=== PATIENT | male | born 1960 | race Caucasian/White ===

== ENCOUNTER 2017-08-19 07:46 | Outpatient (CLI) | payer MEDICARE ==
[~2017-08-19] VITALS: Ht 162.6 cm; Wt 70.0 kg
--- NOTE | ~2017-08-19 | HEMODYNAMI ---
PATIENT:SANDEEP GAGNON MEDICAL RECORD: [id number] : 62 LOCATION:[facility] ADMISSION DATE: 08/19/17 Generatedon:08/19/201710:48 Patient name: SANDEEP GAGNON Patient #: [id number] SSN: DO B: 1960 Date of study: 08/19/2017 Page: Of Hemodynamic Procedure Report Patient Data Patient Demographics Procedure consent was obtained First Name: SANDEEP Gender: Male Last Name: KALIN : 1960 Middle Initial: THANIA Age: 56 year(s) Patient #: [id number] Race: Additional ID: [id number] Contact details Address: [address] [place] [address] State: [place] City: [place] Zip code: [address] Past Medical History Allergies: No known allergies Admission Admission Data Admission Date: 08/19/2017 Admission Time: 7:46 Procedure Procedure Types Cath Procedure Diagnostic Procedure LHC LHC w/Coronaries w/Grafts Miscellaneous Procedures Moderate Sedation up to 30 minutes Procedure Description Procedure Date Procedure Date: 08/19/2017 Procedure Start Time: 10:24 Procedure End Time: 10:45 Procedure Staff Name Function Monae Dean RT Monitor Moshe Malhotra MD Performing Physician Art Betancourt RT Scrub Noah Townsend RN Nurse Procedure Data Cath Procedure Fluoroscopy Diagnostic fluoroscopy Total fluoroscopy Time: 4.7 time: 4.7 min min Diagnostic fluoroscopy Total fluoroscopy dose: dose: 257.69 mGy 257.69 mGy Contrast Material Contrast Material Type Amount (ml) Isovue 300 93 Entry Location Entry Primary Successful Side Size Upsize Upsize Entry Closure Succes sful Closure Location (Fr) 1 (Fr) 2 (Fr) Remarks Device Remarks Femoral Right 5 Fr 6 Fr Exoseal artery Short Estimated blood loss: 5 ml Diagnostic catheters Device Type Used For End Catheter Placement MULTIPACK Pigtail 5 Fr LV Angiography catheter MULTIPACK JL 4.0 5Fr Left Coronary catheter Angiography DIAGNOSTIC JL 3.5 5Fr Left Coronary catheter ([id number]) Angiography MULTIPACK 3DRC 5Fr Internal mammary catheter arteriography MULTIPACK 3DRC 5Fr Right Coronary catheter Angiography DIAGNOSTIC AR 2 MOD 5 Fr SVG Angiography catheter ([id number]) MULTIPACK 3DRC 5Fr SVG Angiography catheter Procedure Complications No complications Procedure Medications Medication Administration Route Dosage 0.9% NaCl I.V. 100 ml/hr Oxygen NC 2 l/min Heparin Flush Bag added to field 2 bags (1000units/500ml NS) Lidocaine 2% added to field 20 Versed 1 mg Fentanyl I.V. 50 mcg Versed 1 mg Fentanyl I.V. 50 mcg Fentanyl I.V. 50 mcg Fentanyl I.V. 50 mcg Hemodynamics Rest Heart Rate: 65 (bpm) Snapshots Pre Cath Intra NCS Post Cath Vital Signs Time Heart Resp SPO2 etCO2 NIBP (mmHg) Rhythm Pain Sedation Rate (ipm) (%) (mmHg) Status Level (bpm) 10:10:06 60 19 97 33.1 145/94(111) NSR 0 (11) 10(A) , No pain 10:14:24 64 18 96 35.4 148/85(111) NSR 0 (11) 10(A) , No pain 10:18:44 65 15 95 36.1 141/86(113) NSR 0 (11) 10(A) , No pain 10:22:56 67 16 94 35.4 138/84(118) NSR 0 (11) 10(A) , No pain 10:28:12 71 16 96 36.9 148/81(91) NSR 0 (11) 10(A) , No pain 10:32:26 71 14 94 40.6 136/89(123) NSR 0 (11) 10(A) , No pain 10:36:42 73 16 93 29.3 145/97(116) NSR 0 (11) 9(A) , No pain 10:40:56 78 17 93 41.4 144/95(135) NSR 0 (11) 9(A) , No pain 10:46:05 74 19 92 42.2 155/95(117) NSR 0 (11) 9(A) , No pain Medications Time Medication Route Dose Verified Delivered Reason Notes Effe ctiveness by by 10:11:49 0.9% NaCl I.V. 100 Noah Per ml/hr Kristian physician RN 10:12:01 Oxygen NC 2 Noah Noah Per l/min Kristian Townsend physician RN RN 10:12:19 Heparin Flush added 2 Noah Noah used for Bag to bags Lorigan Lorigan procedure (1000units/500ml field RN RN NS) 10:12:33 Lidocaine 2% added 20ml Noah Noah for local to vial Lorigan Lorigan anesthetic field RN RN 10:27:29 Versed 1 mg Noah Noah for Lorigan Lorigan sedation RN RN 10:27:38 Fentanyl I.V. 50 Noah Noah for mcg Lorigan Lorigan sedation RN RN 10:27:53 Versed 1 mg Noah Noah for Lorigan Lorigan sedation RN RN 10:28:44 Fentanyl I.V. 50 Noah Noah for mcg Lorigan Lorigan sedation RN RN 10:34:38 Fentanyl I.V. 50 Noah Noah for mcg Lorigan Lorigan sedation RN RN 10:40:49 Fentanyl I.V. 50 Noah Noah for mcg Lorigan Lorigan sedation RN satellite dish repairer Log Time Note 9:51:39 Time tracking: Regular hours 9:51:42 Plan of Care:Hemodynamics will remain stable., Cardiac rhythm will remain stable., Comfort level will be maintained., Respiratory function will remain adequate., Patient/ family verbilizes understanding of procedure., Procedure tolerated without complication., Recovers from procedure without complications.. 9:53:05 Art MARTÍNEZ(R) sent for patient. Start room use. 10:01:36 Patient received from Pre/Post Procedure Room to CCL 3 Alert and oriented. Tansferred to table in Supine position. 10:01:38 Correct patient and procedure confirmed by team. 10:01:38 Warm blankets applied, and ximena hugger turned on for patient comfort. 10:01:40 ECG and BP/O2 sat monitors applied to patient. 10:01:40 Signed procedure consent form obtained from patient. 10:09:00 Vital chart was started 10:09:03 Rhythm: sinus rhythm 10:09:05 Full Disclosure recording started 10:09:13 H&P Date Dictated: 08/04/2017 Within 30 days and on chart., H&P Addendum completed by physician on day of procedure. (MUST COMPLETE FOR ALL OUTPATIENTS). 10:09:14 Pre-procedure instructions explained to patient. 10:09:15 Pre-op teaching completed and patient verbalized understanding. 10:09:16 Family in waiting room. 10:09:18 Patient NPO since Midnight. 10:09:23 Patient allergic to No known allergies 10:09:25 Is the patient allergic to Iodine/contrast media? No. 10:09:28 Is patient on blood thinner?Yes 10:09:30 ACC The patient was administered the following blood thiners within the last 24 hours: ACCAspirin, ACCPlavix 10:09:32 Patient diabetic? No. 10:09:35 Snore? Yes 10:09:35 Previous problem with sedation/anesthesia? No ? 10:09:36 Sleep apnea? No 10:09:37 Deviated septum? No 10:09:38 Sticks out tongue? Yes 10:09:38 Opens mouth fully? Yes 10:09:39 Airway obstruction? Yes COPD 10:09:41 Dentures? Yes OUT 10:09:43 Pre procedure: right dorsailis pedis pulse 2+ Normal; easily identifiable; not easily obliterated 10:09:45 Patient pain scale 0/10 ?. 10:09:50 IV patent on arrival in left hand with 0.9% NaCl at O. 10:09:54 Lab results completed and on chart. 10:09:56 Right groin area was prepped with chlora-prep and draped in sterile fashion 10:09:57 Sharps counted by scrub and verified by R.N. 10:09:57 Alarms reviewed by R. N. 10:10:00 Use device set Femoral Dx 10:10:01 Medline Cath Pack ([id number]) opened to sterile field. 10:10:01 Bag Decanter () opened to sterile field. 10:10:01 ACIST Syringe (56503) opened to sterile field. 10:10:02 DIAGNOSTIC WIRE .035 260cm J wire (747067) opened to sterile field. 10:10:02 SHEATH 5FR [place] ([id number]) opened to sterile field. 10:10:06 ACIST Manifold (23884) opened to sterile field. 10:10:06 ACIST Hand Control (17948) opened to sterile field. 10:10:07 Tegaderm 4 x 4 (1626W) opened to sterile field. 10:10:07 DIAGNOSTIC Multipack 5Fr catheter set ([id number]) opened to sterile field. 10:10:08 PERCUTANEOUS ENTRY 19GA needle opened to sterile field. 10:11:49 0.9% NaCl 100 ml/hr I.V. was administered by Noah Townsend RN; Per physician; 10:12:01 Oxygen 2 l/min NC was administered by Noah Townsend RN; Per physician; 10:12:19 Heparin Flush Bag (1000units/500ml NS) 2 bags added to field was administered by Noah Townsend RN; used for procedure; 10:12:33 Lidocaine 2% 20ml vial added to field was administered by Noah Townsend RN; for local anesthetic; 10:15:50 Baseline sample Acquired. 10:18:32 Zero performed for pressure channel P1 10:18:57 Physician paged 10:23:33 Final Timeout: patient, procedure, and site verified with staff and physician. All members of the team are in agreement. 10:23:35 Right groin site verified by team. 10:23:38 Physical assessment completed. ASA score P 2 - A patient with mild systemic disease as per Moshe Malhotra MD. 10:23:41 Sedation plan: IV Moderate Sedation Medication:Versed, Fentanyl 10:24:49 Procedure started. 10:24:52 Local anesthetic to right femoral artery with Lidocaine 2% by Moshe Malhotra MD.INITIAL ACCESS ONLY 10::29 Versed 1 mg was administered by Noah Townsend RN; for sedation; 10::38 Fentanyl 50 mcg I.V. was administered by Noah Townsend RN; for sedation; 10::44 A 5 Fr sheath was inserted into the Right Femoral artery 10::53 Versed 1 mg was administered by Noah Townsend RN; for sedation; 10::14 A MULTIPACK Pigtail 5 Fr catheter was advanced over the wire and used for LV Angiography. 10::44 Fentanyl 50 mcg I.V. was administered by Noah Townsend RN; for sedation; 10:29:10 LV gram done using ANSARI 10::14 EF : 60 % 10::16 Injector settings: Ml/sec: 10, Volume: 20, 10:29:17 Catheter removed. 10::25 A MULTIPACK JL 4.0 5Fr catheter was advanced over the wire and used for Left Coronary Angiography.removed, unable to cannulate 10:31:59 Catheter removed. 10:32:17 A DIAGNOSTIC JL 3.5 5Fr catheter ([id number]) was advanced over the wire and used for Left Coronary Angiography.removed, unable to cannulate 10:33:29 Sheath upsized to a 6 Fr Short. 10:33:44 GUIDE 6FR EBU 3.5 catheter ([id number]) opened to sterile field. 10:34:38 Fentanyl 50 mcg I.V. was administered by Noah Townsend RN; for sedation; 10:35:59 Guide catheter removed. 10:36:12 A MULTIPACK 3DRC 5Fr catheter was advanced over the wire and used for Internal mammary arteriography.to LAD 10:37:26 A MULTIPACK 3DRC 5Fr catheter was advanced over the wire and used for Right Coronary Angiography. 10:37:37 Catheter removed. 10:38:26 A DIAGNOSTIC AR 2 MOD 5 Fr catheter ([id number]) was advanced over the wire and used for SVG Angiography.to RCA 10:39:53 A MULTIPACK 3DRC 5Fr catheter was advanced over the wire and used for SVG Angiography.to CIRC 10:39:56 Catheter removed. 10:40:12 Sheath removed intact; hemostasis achieved with Exoseal to the Right Femoral artery. 10:40:14 Procedure ended.(Physican Out) 10:40:38 Fluoroscopy time 04.70 minutes. 10:40:45 Fluoroscopy dose: 257.69 mGy 10:40:45 Flurop Dose total: 257.69 10:40:49 Fentanyl 50 mcg I.V. was administered by Noah Townsend RN; for sedation; 10:41:07 Contrast amount:Isovue 300 93ml. 10:41:09 Sharps counted by scrub and verified by R.N. 10:41:10 Insertion/operative site no bleeding no hematoma. 10:41:12 Post-op/insertion site Right Femoral artery dressed using a 4 x 4 and Tegaderm. 10:41:15 Post right femoral artery:stable, clean and dry 10:41:16 Post Procedure Pulses reassessed and unchanged 10:41:18 Post-procedure physical assessment completed. ASA score P 2 - A patient with mild systemic disease as per Moshe Malhotra MD. 10:41:22 Post procedure rhythm: unchanged. 10:41:25 Estimated blood loss: 5 ml 10:41:26 Patient needs reinforcement of post procedure teaching. 10:41:26 Post procedure instruction explained to patient.Patient verbalizes understanding. 10:41:37 Procedure type changed to Cath procedure, Diagnostic procedure, LHC, LHC w/Coronaries w/Grafts, Miscellaneous Procedures, Moderate Sedation up to 30 minutes 10:41:42 Procedure Complication : No complications 10:41:44 See physician's report for complete and final results. 10:41:47 EXOSEAL 5Fr (EX500) opened to sterile field. 10:42:19 Procedure and supply charges have been captured, reviewed, submitted and are correct. 10:44:59 Vital chart was stopped 10:45:14 Report given to Pre/Post Procedure Room. 10:45:17 Patient transfered to Pre/Post Procedure Room with Stretcher. 10:45:26 Full Disclosure recording stopped 10:45:26 Procedure ended. 10:45:29 End room use (Document Last) Device Usage Item Name Manufacture Quantity Catalog Hospital Part Current Minimal Lot# / Number Charge Number Stock Stock Serial# Code ACIST Acist 1 08011 511955 580735 801658 20 Syringe Medical (62207) Systems Inc Bag Decanter Microtek 1 2001S 247003 20631 107923 5 (2001S) Medical Inc. Medline Cath Cardinal 1 [id number] 073628 76733 725188 5 Pack Health ([id number]) SHEATH 5FR Terumo 1 LMX132 965584 712819 987418 40 [place] (ICV557) DIAGNOSTIC St [place] 1 287199 386418 642249 855966 30 WIRE .035 260cm J wire (509569) ACIST Hand Acist 1 45268 210617 848353 157194 5 Control Medical (37703) Systems Inc ACIST Acist 1 99442 896389 338456 453152 5 Manifold Medical (46329) Systems Inc DIAGNOSTIC Cardinal 1 [id number] 710589 23121 688718 30 Multipack Health 5Fr catheter set (WC1128) Tegaderm 4 x 3M 1 1626W 068763 269616 530947 5 4 (1626W) PERCUTANEOUS Cook Medical 1 [id number] 594705 424031 5 ENTRY 19GA needle MULTIPACK Cardinal 1 281507 5 Pigtail 5 Fr Health catheter MULTIPACK JL Cardinal 1 873208 5 4.0 5Fr Health catheter DIAGNOSTIC Cardinal 1 [id number] 846898 362939 919528 5 JL 3.5 5Fr Health catheter (634983Q) GUIDE 6FR Medtronic 1 [id number] 794971 73174 993532 3 EBU 3.5 catheter ([id number]) MULTIPACK Cardinal 1 497254 5 3DRC 5Fr Health catheter DIAGNOSTIC Cardinal 1 [id number] 379384 026658 702886 20 AR 2 MOD 5 Health Fr catheter (699371G) EXOSEAL 5Fr Cardinal 1 EX500 598123 676106 351053 10 (EX500) Health Signature Audit [place] Stage Time Signature Unsigned Intra-Procedure 08/19/2017 Monae 10:48:46 AM Counts RT(R) Signatures Monitor : Monae Signature : Counts RT Date : Time : [address] [address]
--- NOTE | ~2017-08-19 | OP ---
PATIENT NAME: SANDEEP GAGNON MEDICAL RECORD: [id number] :62 LOCATION:D.CAT ADMISSION DATE: SURGEON: RUDDY DIGGS MD DATE OF OPERATION: 08/19/2017 PROCEDURES: 1. Left heart catheterization. 2. Selective coronary angiography. 3. Vein graft angiography. 4. CUMMINGS angiography. 5. Left ventriculogram. INDICATION: Angina and coronary artery disease. PROCEDURE IN DETAIL: After informed consent was obtained and after detailed explanation of risks, benefits as well as alternative therapies, the patient elected to proceed with angiogram and heart catheterization. The right femoral area was prepped and draped in normal sterile fashion. The right femoral artery was cannulated via modified Seldinger technique with placement of 6-Colombian sheath. All catheters exchanged through this sheath. FINDINGS: 1. Left main has no significant angiographic disease. 2. Left anterior descending is totally occluded. 3. Left circumflex is totally occluded. 4. CUMMINGS to the LAD is widely patent. Distal LAD is small and diffusely diseased. 5. Vein graft to the circumflex in a skipped fashion to OM1 and OM2 is patent, previously placed stents in the vein grafts are patent. The distal vessels are small, diffusely diseased. 6. The right coronary artery is totally occluded. 7. Vein graft to the right coronary artery is widely patent. The distal right coronary artery is small and diffusely diseased. OVERALL IMPRESSION: Wide patency of all vein grafts and previously placed stents, but small diffuse disease of cowlitz vessels after the grafted segment. Continue medical management of the coronary artery disease and cardiac risk factors. TRANSINT:[id number] Voice Confirmation ID: [id number] DOCUMENT ID: [id number] RUDDY DIGGS MD at 1025 CC: [id number] DICTATION DATE: 08/19/17 1046 GRAPHIC PRODUCTION ARTIST: 08/19/17 1217 DEP CLI 08/19/17 [place] [id number] [place] [id number]
[~2017-08-19 07:46] MED LIST: ASPIRIN325 MG PO; BAYER CHEWABLE81 MG PO; CELEXA20 MG PO; FLOVENT; FLOVENT HFA 22012 GM INH; IMDUR30 MG PO; LIPITOR40 MG PO; PLAVIX75 MG PO; PRILOSEC20 MG PO; SINGULAIR10 MG PO; TOPROL XL25 MG PO; TUDORZA PRESS400 MCG IH; XANAX0.25 MG PO
[2017-08-19] MEDS ORDERED: NITROSTAT0.3 MG SL (08:34)
[2017-08-19] MEDS ORDERED: PAXIL20 MG PO (08:34)
[2017-08-19] MEDS ORDERED: LIPITOR40 MG PO (08:35)
[2017-08-19] MEDS ORDERED: PROTONIX40 MG PO (08:35)
[2017-08-19] MEDS ORDERED: ZOFRAN4 MG PO (08:35)
[2017-08-19 08:57] VITALS: BP 137/82; Ht 162.6 cm; Wt 70.0 kg
[2017-08-19 09:05] LABS: BASOPHILS 0.4 % (0-2); EOSINOPHILS 1.3 % (0-7); HEMATOCRIT 45.4 % (42.0-54.0); HEMOGLOBIN 15.5 g/dL (13.5-17.5); IMMATURE GRANULOCYTES 0.3 % (0-5); LYMPHOCYTES 25.3 % (15-50); MCH 31.2 pg (26.0-34.0); MCHC 34.1 g/dL (31.0-37.0); MCV 91.3 fL (80.0-100.0); MEAN PLATELET VOLUME 9.9 fL (7.4-10.4); NEUTROPHILS 64.7 % (40-80); PLATELET COUNT 298 10x3/uL (130-400); RBC 4.97 10x6/uL (4.20-6.10); RDW 13.3 % (11.5-14.5); WBC 10.3 10x3/uL (4.8-10.8)
[2017-08-19 09:09] LABS: CALC OSMOLALITY 273 mosm/kg (275-300); CALCIUM 9.1 mg/dL (8.5-10.1); CARBON DIOXIDE 25.4 mmol/L (21.0-32.0); CHLORIDE - SERUM 104 mmol/L (98-107); GLUCOSE 89 mg/dL (74-106); SODIUM 138 mmol/L (136-145); UREA NITROGEN 10 mg/dL (7-18); eGFR NON AFRICAN AMERICAN 82 mL/min (90-120)
[2017-08-19 09:14] LABS: POTASSIUM - SERUM 4.6 mmol/L (3.5-5.1)
== END 2017-08-19 12:46 | disposition home or self-care (01) ==
LOC: D.CATH 07:46
PROVIDERS: Internal Medicine Interventional Cardiology
DX: I25.119 Atherosclerotic heart disease of native coronary artery with unspecified angina pectoris (principal); I10 Essential (primary) hypertension; F17.200 Nicotine dependence, unspecified, uncomplicated; R94.30 Abnormal result of cardiovascular function study, unspecified; Z01.812 Encounter for preprocedural laboratory examination

== ENCOUNTER 2017-10-10 23:27 | Outpatient (CLI) | payer MEDICARE ==
[~2017-10-10] VITALS: Ht 162.6 cm; Wt 70.1 kg
--- NOTE | ~2017-10-10 | DS ---
PATIENT:SANDEEP GAGNON :62 MEDICAL RECORD: [id number] DISCHARGE SUMMARY ADMISSION DATE: 10/11/17 DISCHARGE DATE: 10/12/17 DATE OF DISCHARGE: 10/12/2017 DISCHARGE DIAGNOSES: 1. Acute coronary syndrome. 2. PTCA stent LAD this admission. 3. Coronary artery disease. 4. Hypertension. 5. Hyperlipidemia. HOSPITAL COURSE: Mr. Gagnon presents with unstable angina, acute coronary syndrome, found to have significant disease of the LAD, underwent successful PTCA stent of the LAD, was discharged home with the addition of Plavix to his medical regimen. He will follow up with [facility] in 1 month. TRANSINT:[id number] Voice Confirmation ID: [id number] DOCUMENT ID: [id number] RUDDY DIGGS MD at 1202 CC: [id number] DICTATION DATE: 10/12/17 1232 WAITER/WAITRESS CAFETERIA: 10/13/17 0806 DIS IN 10/12/[address] [address]
--- NOTE | ~2017-10-10 | CN ---
PATIENT NAME:SANDEEP GAGNON MEDICAL RECORD: [id number] : 62 LOCATION:D. D.2114 ADMIT DATE: 10/11/17 ACCOUNT: [id number] CONSULTING PHYSICIAN: RUDDY DIGGS MD REFERRING PHYSICIAN: RUDDY DIGGS MD DATE OF CONSULTATION: 10/11/2017 DIAGNOSES: 1. Non-Q-wave myocardial infarction. 2. Coronary artery disease. 3. Status post coronary bypass graft surgery. 4. Hyperlipidemia. 5. Gastroesophageal reflux disease. HISTORY OF PRESENT ILLNESS: Mr. Gagnon presents with sudden onset of chest discomfort last night and lasted multiple hours. He did rule in for a small non-Q-wave myocardial infarction with a mildly elevated troponin. He continues to have on and off chest pain. His last cardiac catheterization was in July. At that time, no intervention was undertaken. He had wide patency of the CUMMINGS to the LAD, wide patency of the vein graft to the circumflex with previous stents that were widely patent and wide patency of right coronary vein graft. REVIEW OF SYSTEMS: The patient reports easy bruising but reports no swollen glands. The patient reports no fever, no night sweats, no significant weight gain, no significant weight loss. No significant exercise tolerance. The patient reports no dry eyes, no irritation, no vision change. Patient reports no difficulty hearing and no ear pain. Patient reports no frequent nose bleeds or nose and sinus problems. Patient reports on arm pain on exertion. No shortness of breath while lying down. No history of heart murmur. Patient reports no cough, no wheezing or coughing up blood. Patient reports no abdominal pain, no vomiting. Normal appetite. No diarrhea and not vomiting blood. No nausea and no constipation. Patient reports no incontinence. No difficulty urinating. No hematuria. No increased frequency. Patient reports no muscle aches. No weakness, no arthralgias, no back pain. No swelling of the extremities. Patient reports no abnormal mole, no jaundice, no rashes. Reports no loss of consciousness. No weakness and no numbness. No seizures, dizziness, or headaches. The patient reports no depression, no sleep disturbance, feeling safe in a relationship and no alcohol abuse. Patient reports on fatigue. Reports no runny nose or sinus pressure. No itching, no hives, and no frequent sneezing. PHYSICAL EXAMINATION: GENERAL APPEARANCE: Well-nourished, well-developed, appears stated age. Level of distress, comfortable. PSYCHIATRIC: Mental status, alert, normal affect. Orientation, oriented to time, place and person. EYES: Lids and conjunctiva, noninjected. No discharge, no pallor. ENT: Lips, teeth, gums, normal dentition. Oropharynx, no cyanosis, no pallor. NECK: Carotid arteries, bilateral normal upstroke, no bruits, no thrills. JUGULAR VEINS: No jugular venous pressure or distention. CERVICAL LYMPH NODES: Nontender, nonenlarged. THYROID: Not enlarged. Nontender. No nodules. LUNGS: Respiratory effort, unlabored. CHEST: Normal curvature. No thoracic deformity. No chest wall tenderness. Percussion, resonant. Auscultation, clear. No wheezes, no rales, no rhonchi. CONSULT REPORT [id number] SANDEEP GAGNON CARDIOVASCULAR: Precordial exam, nondisplaced. No heaves or pericardial thrills. Rate and rhythm, regular. Heart sounds, normal S1, normal S2. No S3, no gallop, no rub. Systolic murmur, not heard. Diastolic murmur, not heard. EXTREMITIES: No cyanosis, no edema. Peripheral pulses, full and equal in all extremities, except as noted. No bruits appreciated. ABDOMEN: Soft, nondistended. Normal aorta. No bruit. Nontender. No masses. Liver, nontender, no hepatomegaly. Spleen, nontender, no splenomegaly. MUSCULOSKELETAL: No joint tenderness. No joint swelling. No erythema. NEUROLOGICAL: Normal gait, normal strength, normal tone. SKIN: Warm and dry. OVERALL IMPRESSION: Chest pain with non-Q-wave myocardial infarction, most likely he has recurrent hemodynamically significant coronary artery disease. We will proceed with coronary angiography. Further care depends upon the findings of the angiography. TRANSINT:[id number] Voice Confirmation ID: [id number] DOCUMENT ID: [id number] RUDDY DIGGS MD at 1202 CC: [id number] DICTATION DATE: 10/11/1738 NEWSPAPER EDITOR: 10/11/17 1109 DIS IN 10/12/17 [place] [address] [place] [address]
--- NOTE | ~2017-10-10 | OP ---
PATIENT NAME: SANDEEP GAGNON MEDICAL RECORD: [id number] :62 LOCATION:D.M2 D.2114 ADMISSION DATE:10/11/17 SURGEON: RUDDY DIGGS MD DATE OF OPERATION: 10/11/2017 PROCEDURES: 1. PTCA stent LAD through patent CUMMINGS. 2. Left heart catheterization. 3. Selective coronary angiography. 4. CUMMINGS angiography. 5. Vein graft angiography. 6. Left ventriculogram. INDICATION: Angina and coronary artery disease. PROCEDURE IN DETAIL: After informed consent was obtained and after a detailed explanation of risks, benefits as well as alternative therapies, the patient elected to proceed with angiogram and angioplasty. The right femoral area was prepped and draped in normal sterile fashion. The right femoral artery was cannulated via modified Seldinger technique with placement of 6-Turkmen sheath. All catheters exchanged through this sheath. FINDINGS: Left ventriculogram was performed in the standard 30-degree ANSARI view, reveals mild global hypokinesis. Overall ejection fraction in the 40% range. SELECTIVE CORONARY ANGIOGRAPHY: 1. Left main is basically closed. 2. The right coronary artery is closed. 3. CUMMINGS to the LAD is patent. The LAD is then closed at the site of a previously placed stent from 2013. 4. The vein graft to the circumflex is widely patent. Distal circumflex is widely patent. 5. Vein graft to the right coronary artery is patent. Distal right coronary artery is patent. PTCA STENT OF THE LAD THROUGH THE CUMMINGS GRAFT: The balloon was a 2.5 balloon. Stenting was undertaken with a 2.25 x 38 mm [place] stent. Result was 0% residual stenosis with methodist of ALICJA-3 flow. IMPRESSION: Successful percutaneous transluminal coronary angioplasty stent of the left anterior descending going from 100% initial stenosis to 0% residual stenosis with methodist of ALICJA-3 flow. TRANSINT:[id number] Voice Confirmation ID: [id number] DOCUMENT ID: [id number] RUDDY DIGGS MD at 1202 CC: [id number] DICTATION DATE: 10/11/17 1028 PROPERTY UTILIZATION MANAGER: 10/11/17 1120 DIS IN 10/12/17 [place] [id number]
--- NOTE | ~2017-10-10 | HEMODYNAMI ---
PATIENT:SANDEEP GAGNON MEDICAL RECORD: [id number] : 62 [facility]# [id number] ADMISSION DATE: 10/11/17 Generatedon:10/11/201710:26 Patient name: SANDEEP GAGNON Patient #: [id number] SSN: DO B: 1960 Date of study: 10/11/2017 Page: Of Hemodynamic Procedure Report Patient Data Patient Demographics Procedure consent was obtained First Name: SANDEEP Gender: Male Last Name: KALIN : 1960 [facility] Initial: THANIA Age: 57 year(s) Patient #: [id number] Race: Additional ID: [id number] Contact details Address: [address] [place] [address] State: [place] City: [place] Zip code: [address] Past Medical History Allergies: No known allergies Admission Admission Data Admission Date: 10/11/2017 Admission Time: 1:36 Room #: D.E07 Procedure Procedure Types Cath Procedure Diagnostic Procedure LHC LHC w/Coronaries w/Grafts Sedation Charges Moderate Sedation up to 15 minutes PCI Procedure AMI/SVG/AUTOMATIC STEEL TIE ADJUSTER PTCA or Stent SVG-BMS/SOLO Initial Procedure Description Procedure Date Procedure Date: 10/11/2017 Procedure Start Time: 10:05 Procedure End Time: 10:25 Procedure Staff Name Function Moshe Malhotra MD Performing Physician Yvrose Godoy RT Monitor Noah Townsend RN Nurse Monae Dean RT Scrub Procedure Data Cath Procedure Fluoroscopy Diagnostic fluoroscopy Total fluoroscopy Time: 5.6 time: 5.6 min min Diagnostic fluoroscopy Total fluoroscopy dose: 694 dose: 694 mGy mGy Contrast Material Contrast Material Type Amount (ml) Isovue 300 119 Entry Location Entry Primary Successful Side Size Upsize Upsize Entry Closure Succes sful Closure Location (Fr) 1 (Fr) 2 (Fr) Remarks Device Remarks Femoral Right 5 Fr 6 Fr Exoseal artery Short Estimated blood loss: 5 ml Diagnostic catheters Device Type Used For End Catheter Placement MULTIPACK Pigtail 5 Fr LV Angiography catheter MULTIPACK JL 4.0 5Fr Left Coronary catheter Angiography MULTIPACK 3DRC 5Fr Multi-vessel catheter Angiography DIAGNOSTIC AR 2 MOD 5 Fr Multi-vessel catheter ([id number]) Angiography Procedure Complications No complications Procedure Medications Medication Administration Route Dosage 0.9% NaCl I.V. 100 ml/hr Oxygen NC 2 l/min Heparin Flush Bag added to field 2 bags (1000units/500ml NS) Lidocaine 2% added to field 20 Versed I.V. 2 mg Fentanyl I.V. 100 mcg Heparin Bolus I.V. 4000 units Nitroglycerin IC/IA I.C. 200 mcg Hemodynamics Rest Heart Rate: 66 (bpm) Pressure Samples Time Site Value (mmHg) Purpose Heart Use Rate(bpm) 10:07 LV 44/15,29 Snapshot 76 Snapshots Pre Cath Intra NCS Post Cath Vital Signs Time Heart Resp SPO2 etCO2 NIBP (mmHg) Rhythm Pain Sedation Rate (ipm) (%) (mmHg) Status Level (bpm) 9:54:16 65 17 35.9 147/91(116) NSR 0 (11) 10(A) , No pain 9:58:59 65 15 94 26.9 145/96(120) NSR 0 (11) 10(A) , No pain 10:03:41 66 16 96 29.8 141/89(118) NSR 0 (11) 10(A) , No pain 10:08:22 69 17 95 26.9 137/89(120) NSR 0 (11) 10(A) , No pain 10:13:02 71 14 96 35.8 130/87(109) NSR 0 (11) 10(A) , No pain 10:17:41 73 15 95 38.1 132/87(107) NSR 0 (11) 10(A) , No pain 10:22:20 74 14 91 35.9 133/85(111) NSR 0 (11) 10(A) , No pain Medications Time Medication Route Dose Verified Delivered Reason Notes Effectiveness by by 9:51:29 0.9% NaCl I.V. 100 Noah Noah Per physician ml/hr Kristian Townsend RN RN 9:51:38 Oxygen NC 2 Noah Noah Per physician l/min Kristian Townsend RN RN 9:51:51 Heparin Flush added 2 Noah Noah used for Bag to bags Lorigan Lorigan procedure (1000units/500ml field RN RN NS) 9:52:02 Lidocaine 2% added 20ml Noah Noah for local to vial Kristian Townsend anesthetic field RN RN 10:06:01 Versed I.V. 2 mg Noah Noah for sedation Kristian Townsend RN RN 10:06:11 Fentanyl I.V. 100 Noah Noah for sedation mcg Kristian Townsend RN RN 10:13:33 Heparin Bolus I.V. 4000 Noah Noah for units Kristian Townsend anticoagulation RN RN 10:18:57 Nitroglycerin I.C. 200 Noah Moshe for IC/IA mcg Kristian Malhotra MD vasodilation 3d animator Log Time Note 9:40:30 Noah Townsend RN sent for patient. Start room use. 9:40:31 Time tracking: Call back 9:40:35 Plan of Care:Hemodynamics will remain stable., Cardiac rhythm will remain stable., Comfort level will be maintained., Respiratory function will remain adequate., Patient/ family verbilizes understanding of procedure., Procedure tolerated without complication., Recovers from procedure without complications.. 9:41:15 Patient received from ED to CCL 1 Alert and oriented. Tansferred to table in Supine position. 9:41:16 Warm blankets applied, and ximena hugger turned on for patient comfort. 9:41:17 Correct patient and procedure confirmed by team. 9:41:18 Signed procedure consent form obtained from patient. 9:41:18 ECG and BP/O2 sat monitors applied to patient. 9:41:20 Full Disclosure recording started 9:46:55 Vital chart was started 9:48:56 Baseline sample Acquired. 9:49:00 Rhythm: sinus rhythm 9:49:08 H&P Date Dictated: 10/11/2017 New H&P dictated by physician.. 9:49:10 Pre-procedure instructions explained to patient. 9:49:11 Pre-op teaching completed and patient verbalized understanding. 9:49:12 Family in waiting room. 9:49:13 Patient NPO since Midnight. 9:49:23 Is the patient allergic to Iodine/contrast media? No. 9:49:25 Was the patient premedicated? No 9:51:29 0.9% NaCl 100 ml/hr I.V. was administered by Noah Townsend RN; Per physician; 9:51:38 Oxygen 2 l/min NC was administered by Noah Townsend RN; Per physician; 9:51:51 Heparin Flush Bag (1000units/500ml NS) 2 bags added to field was administered by Noah Townsend RN; used for procedure; 9:52:02 Lidocaine 2% 20ml vial added to field was administered by Noah Townsend RN; for local anesthetic; 9:52:48 Is patient on blood thinner?Yes 9:52:50 ACC The patient was administered the following blood thiners within the last 24 hours: ACCPlavix 9:52:53 Patient diabetic? No. 9:52:55 Previous problem with sedation/anesthesia? No ? 9:52:57 Snore? Yes 9:52:59 Sleep apnea? No 9:53:00 Deviated septum? No 9:53:02 Opens mouth fully? Yes 9:53:03 Sticks out tongue? Yes 9:53:05 Airway obstruction? No ? 9:53:07 Dentures? No ? 9:53:11 Pre procedure: right dorsailis pedis pulse 1+ Palpable, but thready & weak; easily obliterated 9:53:13 Pre procedure: left dorsailis pedis pulse 1+ Palpable, but thready & weak; easily obliterated 9:53:15 Patient pain scale 0/10 ?. 9:53:21 IV patent on arrival in right hand with 0.9% NaCl at KVO. 9:53:23 Lab results completed and on chart. 9:53:28 Right groin area was prepped with chlora-prep and draped in sterile fashion 9:53:29 Alarms reviewed by R. N. 9:53:29 Sharps counted by scrub and verified by R.N. 9:58:53 Physician paged 10:03:55 Physician arrived 10:03:56 --------ALL STOP TIME OUT------ 10:03:57 Final Timeout: patient, procedure, and site verified with staff and physician. All members of the team are in agreement. 10:04:01 Right groin site verified by team. 10:04:05 Physical assessment completed. ASA score P 2 - A patient with mild systemic disease as per Moshe Malhotra MD. 10:04:11 Sedation plan: IV Moderate Sedation Medication:Versed, Fentanyl 10:05:15 Procedure started. 10:05:28 Local anesthetic to right femoral artery with Lidocaine 2% by Moshe Malhotra MD.INITIAL ACCESS ONLY 10:05:38 A 5 Fr sheath was inserted into the Right Femoral artery 10:06:01 Versed 2 mg I.V. was administered by Noah Townsend RN; for sedation; 10:06:11 Fentanyl 100 mcg I.V. was administered by Noah Townsend RN; for sedation; 10:06:18 Use device set Femoral Dx 10:06:20 ACIST Syringe (96788) opened to sterile field. 10:06:20 Bag Decanter (2002S) opened to sterile field. 10:06:21 Medline Cath Pack ([id number]) opened to sterile field. 10:06:21 SHEATH 5FR Novice ([id number]) opened to sterile field. 10:06:22 DIAGNOSTIC WIRE .035 260cm J wire (956820) opened to sterile field. 10:06:23 ACIST Hand Control (23013) opened to sterile field. 10:06:23 ACIST Manifold (66086) opened to sterile field. 10:06:24 DIAGNOSTIC Multipack 5Fr catheter set ([id number]) opened to sterile field. 10:06:24 Tegaderm 4 x 4 (1626W) opened to sterile field. 10:06:35 A MULTIPACK Pigtail 5 Fr catheter was advanced over the wire and used for LV Angiography. 10:07:05 LV hemodynamics recorded. 10:07:07 LV gram done using ANSARI 10:07:10 Injector settings: Ml/sec: 5, Volume: 15, 10:07:20 EF : 40 % 10:07:22 Catheter removed. 10:07:27 A MULTIPACK JL 4.0 5Fr catheter was advanced over the wire and used for Left Coronary Angiography. 10:10:02 LCA angiography performed. 10:10:05 Injector settings: Ml/sec: 3, Volume: 6, 10:10:07 Catheter removed. 10:10:31 A MULTIPACK 3DRC 5Fr catheter was advanced over the wire and used for Multi-vessel Angiography. 10:10:34 CUMMINGS angiography performed. 10:11:32 Catheter removed. 10:11:48 A DIAGNOSTIC AR 2 MOD 5 Fr catheter ([id number]) was advanced over the wire and used for Multi-vessel Angiography. 10:12:09 SVG to Circ angiography performed. 10:12:14 SVG to RCA angiography performed. 10:12:51 Catheter removed. 10:13:23 Proceeding to intervention. 10:13:30 Sheath upsized to a 6 Fr Short. 10:13:33 Heparin Bolus 4000 units I.V. was administered by Noah Townsend RN; for anticoagulation; 10:13:40 GUIDE 6FR BRANDIE 90 catheter ([id number]) opened to sterile field. 10:13:45 6 Fr brandie guide catheter was inserted over the wire 10:13:55 SHEATH 6FR Novice (FBP188) opened to sterile field. 10:13:55 INFLATOR Merit BasixCompak (FW2825) opened to sterile field. 10:13:56 CHOICE PT Extra Support 182cm wire ([id number]) opened to sterile field. 10:14:08 choice pt wire advanced. 10:14:39 Wire advanced across lesion. 10:15:58 Inflation number: 1 A EUPHORA 2.5 x 20 Balloon ([id number]) was prepped and advanced across the CUMMINGS -> Mid LAD, then inflated to 9 ROYAL for 0:10 (min:sec). 10:16:12 Inflation number: 2 The EUPHORA 2.5 x 20 Balloon ([id number]) was reinflated across the CUMMINGS -> Mid LAD, to 9 ROYAL for 0:10 (min:sec). 10:16:26 Inflation number: 3 The EUPHORA 2.5 x 20 Balloon ([id number]) was reinflated across the CUMMINGS -> Mid LAD, to 9 ROYAL for 0:10 (min:sec). 10:17:36 Inflation number: 4 The EUPHORA 2.5 x 20 Balloon ([id number]) was reinflated across the CUMMINGS -> Mid LAD, to 13 ROYAL for 0:10 (min:sec). 10:18:57 Nitroglycerin IC/IA 200 mcg I.C. was administered by Moshe Malhotra MD; for vasodilation; 10:20:15 Balloon removed over the wire. 10:22:05 Inflation Number: 5 A DWIGHT RX 2.25 x 38 stent ([id number]) was prepped and advanced across the CUMMINGS -> Mid LAD. The stent was deployed at 19 ROYAL for 0:10 (min:sec). 10:22:11 Stent catheter was removed intact over wire. 10:22:12 Wire removed. 10:22:12 Guide catheter removed. 10:22:35 EXOSEAL 6Fr (EX600) opened to sterile field. 10:22:49 Sheath removed intact; hemostasis achieved with Exoseal to the Right Femoral artery. 10:23:08 Procedure ended.(Physican Out) 10:23:22 Fluoroscopy time 05.60 minutes. 10:23:26 Flurop Dose total: 694 10:: Fluoroscopy dose: 694 mGy 10::35 Contrast amount:Isovue 300 119ml. 10:23:37 Sharps counted by scrub and verified by R.N. 10:23:38 Insertion/operative site no bleeding no hematoma. 10:23:41 Post-op/insertion site Right Femoral artery dressed using a 4 x 4 and Tegaderm. 10:23:44 Post right femoral artery:stable 10:23:46 Post Procedure Pulses reassessed and unchanged 10:23:49 Post procedure rhythm: unchanged. 10:23:52 Estimated blood loss: 5 ml 10:23:54 Post procedure instruction explained to patient.Patient verbalizes understanding. 10:23:55 Patient needs reinforcement of post procedure teaching. 10:24:33 Procedure type changed to Cath procedure, Diagnostic procedure, LHC, LHC w/Coronaries w/Grafts, Sedation Charges, Moderate Sedation up to 15 minutes, PCI procedure, AMI/SVG/AUTOMATIC STEEL TIE ADJUSTER PTCA or Stent, SVG-BMS/SOLO Initial 10:24:50 Procedure and supply charges have been captured, reviewed, submitted and are correct. 10:25:12 Procedure Complication : No complications 10:25:16 Vital chart was stopped 10:25:17 See physician's report for complete and final results. 10:25:20 Report given to ED. 10:25:23 Patient transfered to ED with Stretcher. 10:25:25 Procedure ended. 10:25:25 Full Disclosure recording stopped 10:25:33 ACC-PCI Only Patient was given prescriptions, or instructed by Noah Townsend RN to start/continue the following medications upon discharge: Plavix 10:25:34 End room use (Document Last) Intervention Summary Intervention Notes Time ActionType Lesion and Equipment Used Action# Pressure Duration Attributes 10:15:58 Inflate CUMMINGS -> Mid EUPHORA 2.5 x 1 9 00:10 balloon LAD 20 Balloon ([id number]) 10:16:12 Reinflate CUMMINGS -> Mid EUPHORA 2.5 x 2 9 00:10 balloon LAD 20 Balloon ([id number]) 10:16:26 Reinflate CUMMINGS -> Mid EUPHORA 2.5 x 3 9 00:10 balloon LAD 20 Balloon ([id number]) 10:17:36 Reinflate CUMMINGS -> Mid EUPHORA 2.5 x 4 13 00:10 balloon LAD 20 Balloon ([id number]) 10:22:05 [address] stent CUMMINGS -> Mid DWIGHT RX 2.25 x 5 19 00:10 LAD 38 stent ([id number]) Device Usage Item Name Manufacture Quantity Catalog Number [facility] M inimal Lot# / Charge Number Stock Stock Serial# Code ACIST Syringe Acist 1 [id number] 670068 455177 2 0 (59613) Medical Systems Inc Bag Decanter Microtek 1 2001S 516444 97291 150272 5 (2001S) Medical Inc. Medline Cath Cardinal 1 [id number] 058776 30331 132675 5 Pack Health ([id number]) SHEATH 5FR Terumo 1 RYL717 669256 267680 679089 4 0 Novice ([id number]) DIAGNOSTIC St Gi[place] 1 627335 479244 640014 488394 3 0 WIRE .035 260cm J wire (789520) ACIST Hand Acist 1 35804 117138 290855 741686 5 Control Medical (32115) Systems Inc ACIST Manifold Acist 1 32031 739005 146923 517708 5 (16021) Medical Systems Inc DIAGNOSTIC Cardinal 1 IY6838 905573 46241 054117 3 0 Multipack 5Fr Health catheter set ([id number]) Tegaderm 4 x 4 3M 1 1626W 329241 294787 649749 5 (1626W) MULTIPACK Cardinal 1 475321 5 Pigtail 5 Fr Health catheter MULTIPACK JL Cardinal 1 121022 5 4.0 5Fr Health catheter MULTIPACK 3DRC Cardinal 1 507424 5 5Fr catheter Health DIAGNOSTIC AR Cardinal 1 [id number] 940727 450355 064516 2 0 2 MOD 5 Fr Health catheter ([id number]) GUIDE 6FR BRANDIE Medtronic 1 [id number] 149263 84383 398376 1 90 catheter ([id number]) SHEATH 6FR Terumo 1 UXS050 070224 768293 942031 4 0 Novice ([id number]) INFLATOR Merit Merit 1 XU6904 823453 358496 639703 1 5 [place] Join Innovation TechnologyJoint venture between [facility] and [employer] [facility] ([id number]) CHOICE PT [place]pah 1 [id number] 401124 312676 855511 5 Extra Support Scientific 182cm wire ([id number]) EUPHORA 2.5 x Medtronic 1 [id number] 560564 906079 015287 5 [id number] 20 Balloon ([id number]) DWIGHT RX 2.25 x Medtronic 1 [id number] 974451 1570317 796849 5 [id number] 38 stent ([id number]) EXOSEAL 6Fr Cardinal 1 EX600 488494 127757 477597 1 0 (EX600) Health Signature Audit [place] Stage Time Signature Unsigned Intra-Procedure 10/11/2017 Yvrose Godoy 10:26:45 AM RT(R) Signatures Monitor : Yvrose Godoy RT Signature : Date : Time : [id number] [place] [address]
[~2017-10-10 23:27] MED LIST changes: +NITROSTAT0.3 MG SL; +PAXIL20 MG PO; +PROTONIX40 MG PO; +ZOFRAN4 MG PO
[2017-10-11 01:02] LABS: BASOPHILS 0.4 % (0-2); EOSINOPHILS 2.2 % (0-7); HEMATOCRIT 44.4 % (42.0-54.0); HEMOGLOBIN 15.4 g/dL (13.5-17.5); IMMATURE GRANULOCYTES 0.3 % (0-5); LYMPHOCYTES 35.6 % (15-50); MCH 31.3 pg (26.0-34.0); MCHC 34.7 g/dL (31.0-37.0); MCV 90.2 fL (80.0-100.0); MEAN PLATELET VOLUME 9.3 fL (7.4-10.4); MONOCYTES 10.5 % (2-11); PLATELET COUNT 304 10x3/uL (130-400); RBC 4.92 10x6/uL (4.20-6.10); RDW 14.5 % (11.5-14.5); WBC 10.3 10x3/uL (4.8-10.8)
[2017-10-11 01:24] LABS: ALBUMIN 3.8 g/dL (3.4-5.0); ALKALINE PHOSPHATASE 142 U/L (46-116); ALT (SGPT) 27 U/L (10-68); BILIRUBIN - TOTAL 0.27 mg/dL (0.2-1.3); CALC OSMOLALITY 283 mosm/kg (275-300); CALCIUM 9.3 mg/dL (8.5-10.1); CARBON DIOXIDE 28.2 mmol/L (21.0-32.0); CHLORIDE - SERUM 104 mmol/L (98-107); GLUCOSE 95 mg/dL (74-106); POTASSIUM - SERUM 4.1 mmol/L (3.5-5.1); PROTEIN - SERUM 7.2 g/dL (6.4-8.2); SODIUM 143 mmol/L (136-145); UREA NITROGEN 10 mg/dL (7-18); eGFR NON AFRICAN AMERICAN 82 mL/min (90-120)
[2017-10-11 01:59] LABS: CHOL - HDL RATIO 3.7 ratio (2.3-4.9); CHOLESTEROL, TOTAL 118 mg/dL (0-200); CKMB 10.3 U/L (0.0-3.6); CREATINE KINASE 156 UL (21-232); HDL CHOLESTEROL 32 mg/dL (32-96); LDL CHOLESTEROL 61 mg/dL (0-100); LDL-HDL RATIO 1.9 ratio (1.5-3.5); TRIGLYCERIDE 127 mg/dL (30-200)
[2017-10-11 02:00] LABS: TROPONIN-I 1.133 ng/mL (0.000-0.060)
[2017-10-11 08:07] LABS: CKMB 57.6 U/L (0.0-3.6); CREATINE KINASE 480 UL (21-232); TROPONIN-I 6.548 ng/mL (0.000-0.060)
[2017-10-11 12:52] VITALS: BP 127/90; Ht 162.6 cm; Wt 70.1 kg
[2017-10-11] MEDS ORDERED: COREG 3.1253.125 MG PO (13:01)
[2017-10-11 14:45] LABS: TROPONIN-I 16.852 ng/mL (0.000-0.060)
[2017-10-11 15:32] VITALS: BP 149/95
[2017-10-11 19:48] LABS: CREATINE KINASE 686 UL (21-232)
[2017-10-11 19:49] LABS: CKMB 69.1 U/L (0.0-3.6); TROPONIN-I 12.697 ng/mL (0.000-0.060)
[2017-10-11 21:35] VITALS: BP 145/92
[2017-10-12 01:24] VITALS: BP 138/93
[2017-10-12 06:30] VITALS: BP 132/113
[2017-10-12 09:10] VITALS: BP 145/97
[2017-10-12 12:42] VITALS: BP 149/96
[2017-10-12] MEDS ORDERED: PLAVIX75 MG PO (13:56)
[2017-10-12] MEDS ORDERED: LOPRESSOR25 MG PO (13:57)
== END 2017-10-12 14:41 | disposition home or self-care (01) ==
LOC: OBSVTIME → D.ER 23:27 → D.OPS 23:27 → D.ER 10-11 01:36 → D.EDHOLD 10-11 01:36 → OBSVTIME 10-11 01:36 → D.M2 10-11 11:14 → D.EDHOLD 10-11 11:14 → D.M2 10-12 14:41 → D.OPS 10-12 14:41
PROVIDERS: Emergency Medicine; Family Medicine
DX: I21.4 Non-ST elevation (NSTEMI) myocardial infarction (principal); I10 Essential (primary) hypertension; I25.119 Atherosclerotic heart disease of native coronary artery with unspecified angina pectoris; E78.5 Hyperlipidemia, unspecified; Z95.1 Presence of aortocoronary bypass graft; K21.9 Gastro-esophageal reflux disease without esophagitis; Z01.812 Encounter for preprocedural laboratory examination
CPT/HCPCS: 93459; C9604

== ENCOUNTER 2017-12-05 08:54 | Outpatient (CLI) | payer MEDICARE ==
[~2017-12-05] VITALS: Ht 162.6 cm; Wt 70.5 kg
--- NOTE | ~2017-12-05 | HEMODYNAMI ---
PATIENT:SANDEEP GAGNON MEDICAL RECORD: [id number] : 62 LOCATION:[facility] ADMISSION DATE: 12/05/17 Generatedon:12/05/201712:20 Patient name: SANDEEP GAGNON Patient #: [id number] SSN: DO B: 1960 Date of study: 12/05/2017 Page: Of Hemodynamic Procedure Report Patient Data Patient Demographics Procedure consent was obtained First Name: SANDEEP Gender: Male Last Name: KALIN : 1960 Middle Initial: THANIA Age: 57 year(s) Patient #: [id number] Race: Additional ID: [id number] Contact details Address: [address] [place] [address] State: [place] City: [place] Zip code: [address] Past Medical History Allergies: No known allergies Admission Admission Data Admission Date: 12/05/2017 Admission Time: 8:54 Procedure Procedure Types Cath Procedure Diagnostic Procedure LHC LHC w/Coronaries w/Grafts Procedure Description Procedure Date Procedure Date: 12/05/2017 Procedure Start Time: 12:07 Procedure End Time: 12:19 Procedure Staff Name Function Moshe Malhotra MD Performing Physician Monae Dean RT Monitor Noah Townsend RN Nurse Art Betancourt RT Scrub Procedure Data Cath Procedure Fluoroscopy Diagnostic fluoroscopy Total fluoroscopy Time: 1.8 time: 1.8 min min Diagnostic fluoroscopy Total fluoroscopy dose: 305 dose: 305 mGy mGy Contrast Material Contrast Material Type Amount (ml) Isovue 370 60 Entry Location Entry Primary Successful Side Size Upsize Upsize Entry Closure Succes sful Closure Location (Fr) 1 (Fr) 2 (Fr) Remarks Device Remarks Femoral Right 5 Fr Exoseal artery Estimated blood loss: 5 ml Diagnostic catheters Device Type Used For End Catheter Placement MULTIPACK Pigtail 5 Fr LV Angiography catheter MULTIPACK JL 4.0 5Fr Left Coronary catheter Angiography MULTIPACK 3DRC 5Fr Internal mammary catheter arteriography MULTIPACK 3DRC 5Fr Right Coronary catheter Angiography DIAGNOSTIC AR 2 MOD 5 Fr SVG Angiography catheter ([id number]) DIAGNOSTIC AR 2 MOD 5 Fr SVG Angiography catheter ([id number]) Procedure Complications No complications Procedure Medications Medication Administration Route Dosage 0.9% NaCl I.V. 100 ml/hr Oxygen etCO2 Nasal cannula 2 l/min Heparin Flush Bag added to field 2 bags (1000units/500ml NS) Lidocaine 2% added to field 20 Versed I.V. 1 mg Fentanyl I.V. 50 mcg Fentanyl I.V. 50 mcg Versed I.V. 1 mg Hemodynamics Rest Heart Rate: 55 (bpm) Snapshots Pre Cath Intra NCS Post Cath Vital Signs Time Heart Resp SPO2 etCO2 NIBP (mmHg) Rhythm Pain Sedation Rate (ipm) (%) (mmHg) Status Level (bpm) 11:51:37 57 19 97 0 141/82(105) NSR 0 (11) 10(A) , No pain 11:56:26 61 18 98 38.2 131/81(100) NSR 0 (11) 10(A) , No pain 12:01:13 54 15 97 39 127/75(102) NSR 0 (11) 10(A) , No pain 12:05:58 59 16 98 40.5 131/82(99) NSR 0 (11) 10(A) , No pain 12:10:44 53 19 98 42.7 140/87(109) NSR 0 (11) 10(A) , No pain 12:15:37 59 16 98 31.5 132/79(104) NSR 0 (11) 10(A) , No pain Medications Time Medication Route Dose Verified Delivered Reason Notes Eff ectiveness by by 11:55:06 0.9% NaCl I.V. 100 Noah Noah Per ml/hr Kristian Townsend physician RN RN 11:55:17 Oxygen etCO2 2 Noah Noah Per Nasal l/min Kristian Townsend physician cannula RN RN 11:56:10 Heparin Flush added 2 Noah Noah used for Bag to bags Kristian Townsend procedure (1000units/500ml field RN RN NS) 11:56:26 Lidocaine 2% added 20ml Noah Noah for local to vial Lorigan Lorigan anesthetic field RN RN 12:04:20 Versed I.V. 1 mg Noah Noah for Lorigan Lorigan sedation RN RN 12:04:33 Fentanyl I.V. 50 Noah Noah for mcg Lorigan Lorigan sedation RN RN 12:10:03 Fentanyl I.V. 50 Noah Noah for mcg Lorigan Lorigan sedation RN RN 12:10:10 Versed I.V. 1 mg Noah Noah for Lorigan Lorigan sedation RN retort or condenser press operator Log Time Note 11:37:00 Art Betancourt RT(R) sent for patient. Start room use. 11:37:02 Time tracking: Regular hours (M-F 7:00 - 5:00) 11:37:07 Plan of Care:Hemodynamics will remain stable., Cardiac rhythm will remain stable., Comfort level will be maintained., Respiratory function will remain adequate., Patient/ family verbilizes understanding of procedure., Procedure tolerated without complication., Recovers from procedure without complications.. 11:42:12 Patient received from Pre/Post Procedure Room to CCL 1 Alert and oriented. Tansferred to table in Supine position. 11:42:13 Warm blankets applied, and ximena hugger turned on for patient comfort. 11:42:14 Correct patient and procedure confirmed by team. 11:42:15 Signed procedure consent form obtained from patient. 11:42:16 ECG and BP/O2 sat monitors applied to patient. 11:42:17 Full Disclosure recording started 11:50:39 Vital chart was started 11:50:42 Rhythm: sinus rhythm 11:50:56 H&P Date Dictated: 12/04/2017 Within 30 days and on chart., H&P Addendum completed by physician on day of procedure. (MUST COMPLETE FOR ALL OUTPATIENTS). 11:50:59 Pre-procedure instructions explained to patient. 11:50:59 Pre-op teaching completed and patient verbalized understanding. 11:51:02 Family unavailable. 11:51:05 Patient NPO since Midnight. 11:51:11 Patient allergic to No known allergies 11:51:14 Is the patient allergic to Iodine/contrast media? No. 11:51:16 Is patient on blood thinner?Yes 11:51:18 ACC The patient was administered the following blood thiners within the last 24 hours: ACCPlavix 11:51:20 Patient diabetic? No. 11:51:23 Previous problem with sedation/anesthesia? No ? 11:51:25 Snore? Yes 11:51:26 Sleep apnea? No 11:51:27 Deviated septum? No 11:51:28 Opens mouth fully? Yes 11:51:29 Sticks out tongue? Yes 11:51:34 Airway obstruction? Yes COPD 11:51:37 Dentures? Yes OUT 11:51:46 Pre procedure: right dorsailis pedis pulse 2+ Normal; easily identifiable; not easily obliterated 11:55:06 0.9% NaCl 100 ml/hr I.V. was administered by Noah Townsend RN; Per physician; 11:55:17 Oxygen 2 l/min etCO2 Nasal cannula was administered by Noah Townsend RN; Per physician; 11:56:10 Heparin Flush Bag (1000units/500ml NS) 2 bags added to field was administered by Noah Townsend RN; used for procedure; 11:56:26 Lidocaine 2% 20ml vial added to field was administered by Noah Townsend RN; for local anesthetic; 11:57:29 Patient pain scale 0/10 ?. 11:57:39 IV patent on arrival in right forearm with 0.9% NaCl at [facility]. 11:57:43 Lab results completed and on chart. 11:57:46 Right groin area was prepped with chlora-prep and draped in sterile fashion 11:57:55 Alarms reviewed by R. N. 11:57:56 Sharps counted by scrub and verified by R.N. 11:58:30 Use device set Femoral Dx 11:58:31 ACIST Syringe (85400) opened to sterile field. 11:58:31 Bag Decanter () opened to sterile field. 11:58:32 Medline Cath Pack ([id number]) opened to sterile field. 11:58:32 DIAGNOSTIC WIRE .035 260cm J wire (296620) opened to sterile field. 11:58:36 ACIST Hand Control (84879) opened to sterile field. 11:58:36 ACIST Manifold (44523) opened to sterile field. 11:58:38 DIAGNOSTIC Multipack 5Fr catheter set ([id number]) opened to sterile field. 11:58:39 Tegaderm 4 x 4 (1626W) opened to sterile field. 11:58:39 PERCUTANEOUS ENTRY 19GA needle opened to sterile field. 11:58:40 SHEATH Prelude 5Fr 0.035 (VKV-1E-25-035) opened to sterile field. 12:00:15 Physician paged 12:00:38 Baseline sample Acquired. 12:01:45 Zero performed for pressure channel P1 12:04:00 Final Timeout: patient, procedure, and site verified with staff and physician. All members of the team are in agreement. 12:04:02 Right groin site verified by team. 12:04:05 Physical assessment completed. ASA score P 2 - A patient with mild systemic disease as per Moshe Malhotra MD. 12:04:07 Sedation plan: IV Moderate Sedation Medication:Versed, Fentanyl 12:04:20 Versed 1 mg I.V. was administered by Noah Townsend RN; for sedation; 12:04:33 Fentanyl 50 mcg I.V. was administered by Noah Townsend RN; for sedation; 12:07:21 Procedure started. 12:07:25 Local anesthetic to right femoral artery with Lidocaine 2% by Moshe Malhotra MD.INITIAL ACCESS ONLY 12:08:15 A 5 Fr sheath was inserted into the Right Femoral artery 12:08:28 A MULTIPACK Pigtail 5 Fr catheter was advanced over the wire and used for LV Angiography. 12:09:30 LV gram done using ANSARI 12::32 Injector settings: Ml/sec: 10, Volume: 20, 12:09:37 EF : 50 % 12::38 Catheter removed. 12:09:43 A MULTIPACK JL 4.0 5Fr catheter was advanced over the wire and used for Left Coronary Angiography. 12:10:03 Fentanyl 50 mcg I.V. was administered by Noah Townsend RN; for sedation; 12:10:10 Versed 1 mg I.V. was administered by Noah Townsend RN; for sedation; 12:10:33 Catheter removed. 12:10:59 A MULTIPACK 3DRC 5Fr catheter was advanced over the wire and used for Internal mammary arteriography. LAD 12:12:23 A MULTIPACK 3DRC 5Fr catheter was advanced over the wire and used for Right Coronary Angiography. 12:12:34 Catheter removed. 12:13:26 A DIAGNOSTIC AR 2 MOD 5 Fr catheter ([id number]) was advanced over the wire and used for SVG Angiography. TO RCA 12:13:47 A DIAGNOSTIC AR 2 MOD 5 Fr catheter ([id number]) was advanced over the wire and used for SVG Angiography. TO CIRC 12:13:52 Catheter removed. 12:13:54 EXOSEAL 5Fr (EX500) opened to sterile field. 12:14:03 Sheath removed intact; hemostasis achieved with Exoseal to the Right Femoral artery. 12:14:05 Procedure ended.(Physican Out) 12:14:15 Fluoroscopy time 01.80 minutes. 12:14:18 Flurop Dose total: 305 12:14:18 Fluoroscopy dose: 305 mGy 12:14:23 Contrast amount:Isovue 370 60ml. 12:14:25 Sharps counted by scrub and verified by R.N. 12:14:27 Insertion/operative site no bleeding no hematoma. 12:14:33 Post-op/insertion site Right Femoral artery dressed using a 4 x 4 and Tegaderm. 12:14:46 Post right femoral artery:stable, clean and dry 12:14:48 Post Procedure Pulses reassessed and unchanged 12:14:50 Post-procedure physical assessment completed. ASA score P 2 - A patient with mild systemic disease as per Moshe Malhotra MD. 12:14:54 Post procedure rhythm: unchanged. 12:14:56 Estimated blood loss: 5 ml 12:14:58 Post procedure instruction explained to patient.Patient verbalizes understanding. 12:14:58 Patient needs reinforcement of post procedure teaching. 12:15:21 Procedure Complication : No complications 12:15:24 See physician's report for complete and final results. 12:15:39 Procedure and supply charges have been captured, reviewed, submitted and are correct. 12:19:02 Vital chart was stopped 12:19:04 Report given to Pre/Post Procedure Room. 12:19:08 Patient transfered to Pre/Post Procedure Room with Stretcher. 12:19:16 Procedure ended. 12:19:16 Full Disclosure recording stopped 12:19:19 End room use (Document Last) Device Usage Item Name Manufacture Quantity Catalog Number Hospital Part Current M inimal Lot# / Charge Number Stock Stock Serial# Code ACIST Syringe Acist 1 38684 408526 322100 868670 2 0 (64536) [employer] Bag Decanter Microtek 1 840222 57997 125002 5 () Medical Inc. Medline Cath Cardinal 1 [id number] 270790 58623 318498 5 Opternative [facility] ([id number]) DIAGNOSTIC WIRE [facility] [place] 1 022828 357835 633225 816072 3 0 .035 260cm J wire (542819) ACIST Hand Acist 1 10405 432502 274624 345093 5 Control (53221) [employer] ACIST Manifold Acist 1 70313 850494 839985 098761 5 (61897) [employer] Inc DIAGNOSTIC Cardinal 1 [id number] 072789 01030 339709 3 0 Multipack 5Fr Health catheter set (NM4618) Tegaderm 4 x 4 3M 1 1626W 489623 946904 030807 5 (1626W) PERCUTANEOUS Cook Medical 1 H14987 686512 944070 5 ENTRY 19GA needle SHEATH Prelude Merit 1 WYI-0V-09-035 694975 017163 921622 5 5Fr 0.035 Medical (OII-3Q-09-035) MULTIPACK Cardinal 1 384689 5 Pigtail 5 Fr Health catheter MULTIPACK JL Cardinal 1 858448 5 4.0 5Fr Health catheter MULTIPACK 3DRC Cardinal 1 006826 5 5Fr catheter Health DIAGNOSTIC AR 2 Cardinal 1 [id number] 313631 679393 530593 2 0 MOD 5 Fr Health catheter ([id number]) EXOSEAL 5Fr Cardinal 1 EX500 459187 001349 135412 1 0 (EX500) Health Signature Audit [place] Stage Time Signature Unsigned Intra-Procedure 12/05/2017 Monae 12:20:52 PM Counts RT(R) Signatures Monitor : Monae Signature : Counts RT Date : Time : [place] [id number] [place] [address]
--- NOTE | ~2017-12-05 | OP ---
PATIENT NAME: SANDEEP GAGNON MEDICAL RECORD: [id number] :62 LOCATION:D.CAT ADMISSION DATE: SURGEON: RUDDY DIGGS MD DATE OF OPERATION: 12/05/2017 PROCEDURES: 1. Left heart catheterization. 2. Selective coronary angiography. 3. Left ventriculogram. 4. CUMMINGS angiography. 5. Vein graft angiography. INDICATION: Angina and coronary artery disease. PROCEDURE PERFORMED: After informed consent was obtained and after detailed explanation of risks, benefits as well as alternative therapies, the patient elected to proceed with angiogram and heart catheterization. The right femoral area was prepped and draped in normal sterile fashion. The right femoral artery was cannulated via modified Seldinger technique with placement of a 6-Serbian sheath. All catheters exchanged through this sheath. FINDINGS: Left ventriculogram performed in a standard 30-degree ANSARI view reveals preserved cardiac wall motion, ejection fraction 50%. SELECTIVE CORONARY ANGIOGRAPHY: 1. Left main is closed in the distal aspect. 2. Left anterior descending is totally occluded. 3. Left circumflex is totally occluded. 4. Right coronary is totally occluded. 5. CUMMINGS to the LAD is widely patent. The previously placed stents after the anastomosis are widely patent. The distal LAD is widely patent. 6. The left circumflex vein graft is widely patent. The distal circumflex is widely patent. Previously placed stents in this area are widely patent with no significant restenosis. 7. The right coronary vein graft is widely patent. Distal right coronary is widely patent. OVERALL IMPRESSION: Wide patency of all the previously placed bypass grafts as well as all the previously placed stents. Continue medical management of the coronary artery disease and cardiac risk factors. TRANSINT:[id number] Voice Confirmation ID: [id number] DOCUMENT ID: [id number] RUDDY DIGGS MD at 1848 CC: [id number] DICTATION DATE: 12/05/17 1222 HOME ECONOMIST CONSUMER SERVICE: 12/05/17 1639 [facility] CLI 12/05/17 [place] [id number] [place] [id number]
[~2017-12-05 08:54] MED LIST changes: +COREG 3.1253.125 MG PO; +LOPRESSOR25 MG PO
[2017-12-05 09:33] VITALS: BP 144/86; Ht 162.6 cm; Wt 70.5 kg
[2017-12-05 09:38] LABS: BASOPHILS 0.5 % (0-2); EOSINOPHILS 2.8 % (0-7); HEMATOCRIT 42.5 % (42.0-54.0); HEMOGLOBIN 14.6 g/dL (13.5-17.5); IMMATURE GRANULOCYTES 0.4 % (0-5); LYMPHOCYTES 32.7 % (15-50); MCH 31.1 pg (26.0-34.0); MCHC 34.4 g/dL (31.0-37.0); MCV 90.6 fL (80.0-100.0); MEAN PLATELET VOLUME 8.9 fL (7.4-10.4); MONOCYTES 11.5 % (2-11); NEUTROPHILS 52.1 % (40-80); PLATELET COUNT 343 10x3/uL (130-400); RBC 4.69 10x6/uL (4.20-6.10); RDW 13.6 % (11.5-14.5); WBC 8.4 10x3/uL (4.8-10.8)
[2017-12-05 10:19] LABS: CALC OSMOLALITY 282 mosm/kg (275-300); CALCIUM 9.5 mg/dL (8.5-10.1); CARBON DIOXIDE 26.9 mmol/L (21.0-32.0); CHLORIDE - SERUM 107 mmol/L (98-107); GLUCOSE 88 mg/dL (74-106); POTASSIUM - SERUM 4.2 mmol/L (3.5-5.1); SODIUM 143 mmol/L (136-145); UREA NITROGEN 10 mg/dL (7-18); eGFR NON AFRICAN AMERICAN 82 mL/min (90-120)
== END 2017-12-05 14:30 | disposition home or self-care (01) ==
LOC: D.CATH 08:54
PROVIDERS: Internal Medicine Interventional Cardiology
DX: I25.10 Atherosclerotic heart disease of native coronary artery without angina pectoris (principal); I10 Essential (primary) hypertension; E78.5 Hyperlipidemia, unspecified; F17.200 Nicotine dependence, unspecified, uncomplicated

== ENCOUNTER → 2017-12-11 11:07 | Outpatient (CLI) | payer MEDICARE ==
[2017-12-05 09:33] VITALS: BMI 26.6
== END | disposition home or self-care (01) ==
LOC: D.CT 11:00
DX: I73.9 Peripheral vascular disease, unspecified (principal); I25.10 Atherosclerotic heart disease of native coronary artery without angina pectoris

== ENCOUNTER → 2018-04-02 11:33 | Outpatient (CLI) | payer MEDICARE ==
[2017-12-05 09:33] VITALS: BMI 26.6
== END | disposition home or self-care (01) ==
LOC: D.US 03-23 13:00
DX: R42 Dizziness and giddiness (principal)

== ENCOUNTER → 2018-06-30 09:58 | Day surgery (SDC) | payer MEDICARE ==
[~2018-06-30] VITALS: Ht 162.6 cm; Wt 77.3 kg
[2018-06-30 10:12] LABS: BASOPHILS 0.5 % (0-2); EOSINOPHILS 2.1 % (0-7); HEMATOCRIT 41.8 % (42.0-54.0); HEMOGLOBIN 14.1 g/dL (13.5-17.5); IMMATURE GRANULOCYTES 0.2 % (0-5); LYMPHOCYTES 31.1 % (15-50); MCH 31.7 pg (26.0-34.0); MCHC 33.7 g/dL (31.0-37.0); MCV 93.9 fL (80.0-100.0); MEAN PLATELET VOLUME 9.3 fL (7.4-10.4); MONOCYTES 6.9 % (2-11); NEUTROPHILS 59.2 % (40-80); RBC 4.45 10x6/uL (4.20-6.10); RDW 14.4 % (11.5-14.5); WBC 8.2 10x3/uL (4.8-10.8)
[2018-06-30 10:13] LABS: PLATELET COUNT 252 10x3/uL (130-400)
[2018-06-30 10:22] LABS: CALCIUM 8.9 mg/dL (8.5-10.1); CARBON DIOXIDE 30.6 mmol/L (21.0-32.0); CREATININE - SERUM 0.9 mg/dL (0.6-1.3); GLUCOSE 88 mg/dL (74-106); UREA NITROGEN 12 mg/dL (7-18); eGFR NON AFRICAN AMERICAN > 90 mL/min (90-120)
[2018-06-30 10:39] LABS: CALC OSMOLALITY 283 mosm/kg (275-300); CHLORIDE - SERUM 107 mmol/L (98-107); POTASSIUM - SERUM 4.3 mmol/L (3.5-5.1); SODIUM 143 mmol/L (136-145)
[2018-06-30 11:57] VITALS: BP 133/75; Ht 162.6 cm; Wt 77.3 kg
== END | disposition home or self-care (01) ==
LOC: D.OPS 09:58
PROVIDERS: Anesthesiology
DX: D12.5 Benign neoplasm of sigmoid colon (principal); Z53.9 Procedure and treatment not carried out, unspecified reason; Z01.812 Encounter for preprocedural laboratory examination

== ENCOUNTER 2018-08-25 08:39 | Day surgery (SDC) | payer MEDICARE ==
[~2018-08-25] VITALS: Ht 162.6 cm; Wt 75.0 kg
[2018-08-25 09:03] LABS: BASOPHILS 0.4 % (0-2); EOSINOPHILS 1.6 % (0-7); HEMATOCRIT 46.4 % (42.0-54.0); HEMOGLOBIN 16.1 g/dL (13.5-17.5); IMMATURE GRANULOCYTES 0.2 % (0-5); LYMPHOCYTES 22.4 % (15-50); MCH 31.9 pg (26.0-34.0); MCHC 34.7 g/dL (31.0-37.0); MCV 92.1 fL (80.0-100.0); MEAN PLATELET VOLUME 9.4 fL (7.4-10.4); MONOCYTES 8.9 % (2-11); NEUTROPHILS 66.5 % (40-80); PLATELET COUNT 287 10x3/uL (130-400); RBC 5.04 10x6/uL (4.20-6.10); RDW 14.3 % (11.5-14.5); WBC 13.2 10x3/uL (4.8-10.8)
[2018-08-25] MEDS ORDERED: ISORDIL5 MG PO (09:09)
[2018-08-25] MEDS ORDERED: PEPCID AC20 MG PO (09:10)
[2018-08-25] MEDS ORDERED: ZOLOFT100 MG PO (09:10)
[2018-08-25] MEDS ORDERED: LIPITOR40 MG PO (09:10)
[2018-08-25 09:11] LABS: ANION GAP 12.4 mmol/L (8-16); CALCIUM 9.2 mg/dL (8.5-10.1); CARBON DIOXIDE 29.9 mmol/L (21.0-32.0); CREATININE - SERUM 1.2 mg/dL (0.6-1.3); POTASSIUM - SERUM 4.3 mmol/L (3.5-5.1)
[2018-08-25 09:18] VITALS: Ht 162.6 cm; Wt 75.0 kg
--- NOTE | 2018-08-25 12:16 | NUR ---
PT ARRIVED BACK TO [facility] FROM PROCEDURE AT 1130. PT STATES HAVING CRAMPING AND GASEOUS PAIN IN ABD. I HELPED PT TO THE BATHROOM AND HE WAS EXPELLING GAS FOR ABOUT 30 MIN. CHEST X-RAY WAS ORDERED BY DR. WOODS AFTER PROCEDURE FINISHED TO RULE OUT FREE AIR. X-RAY WAS TAKEN AND CURRENTLY WAITING FOR RESULTS. PT ALSO STATED FEELING NAUSEOUS. ADMINISTERED ZOFRAN 4 MG PER ORDER. I INFORMED DR. WOODS OF PT FEELING GAS PAINS IN ABD. HE ORDERED MYLICON 1 MG PO. CURRENTLY WAITING FOR PHARMACY TO BRING MED TO UNIT.
--- NOTE | 2018-08-25 13:26 | NUR ---
PT IS IN BED RESTING QUIETLY. STATES GAS PAIN IN ABD HAS BEEN RELIEVED SLIGHTLY. STILL WAITING FOR RESULTS FROM CHEST X-RAY.
--- NOTE | 2018-08-25 14:05 | NUR ---
CHEST X-RAY RESULTS: NO FREE AIR
--- NOTE | 2018-08-25 14:12 | NUR ---
PT STATES FEELING LESS GASEOUS.
--- NOTE | 2018-08-25 14:12 | NUR ---
DC INSTRUCTIONS GIVEN TO PT/FAMILY. STATE UNDERSTANDING. DC'D IV CATH FULLY INTACT.
--- NOTE | 2018-08-25 14:30 | NUR ---
PT LEFT UNIT VIA WC AT 1420
--- NOTE | 2018-08-25 16:23 | OP ---
PATIENT NAME: SANDEEP GAGNON MEDICAL RECORD: [id number] :62 LOCATION:D.OPS ADMISSION DATE: SURGEON: FELI WOODS MD DATE OF OPERATION: 08/25/2018 PREOPERATIVE DIAGNOSES: Large sigmoid colon polyp, which was a tubulovillous adenoma with high-grade dysplasia. POSTOPERATIVE DIAGNOSES: Large sigmoid colon polyp, which was a tubulovillous adenoma with high-grade dysplasia with 2 other polyps. There was a 1.0 cm sessile polyp in the rectum at 10 cm, also a 1.5 cm polyp that was sessile at 90 cm. PROCEDURES: 1. Total colonoscopy to cecum. 2. Polypectomy utilizing endoscopic mucosal resection of the sigmoid colon polyp, which was a 4 cm polyp and was semi-pedunculated. 3. Hot biopsy forceps polypectomies times 2. SURGEON: Feli Woods MD COURT MANAGER: None. BLOOD LOSS: Minimal. ANESTHESIA: IV sedation. COMPLICATIONS: None. The risks, possible complications and alternatives to the procedure were explained to the patient. He elects to proceed. ENDOSCOPIC COURSE: The patient was conveyed to the endoscopy suite electively on 08/25/2018. IV sedation was induced by the anesthesia staff. The patient was placed in the Villalobos position. A digital rectal examination was performed. A colonoscope was inserted through the anus. It was easily advanced to the cecum. The prep was adequate. I slowly withdrew the endoscope. The pullback was greater than a 32-minute pullback. Two hot biopsy forceps polypectomies were performed. At the site of the sigmoid colon polyp, I advanced a sclerotherapy needle. There was a submucosal injection of Eleview to lift the polyp away from the colonic wall. Through the sclerotherapy needle, I then injected epinephrine for a post-procedural hemostasis. I advanced a snare. I then performed a piecemeal snare polypectomy of the polyp in the sigmoid colon, removing the entire polyp. The piece of the polyp was grasped with an endoscopic retrieval net and they were sequentially withdrawn out through the anus. There was no bleeding. I will see the patient in my office in 2-3 weeks. We will review the results of the biopsies. If there is no invasive component, then I will plan for the next colonoscopy to take place in the GI lab in 1 year. TRANSINT:[id number] Voice Confirmation ID: [id number] DOCUMENT ID: [id number] OPERATIVE REPORT [id number] SANDEEP GAGNON [place] MD at 1623 CC: CHELSY HENNESSY MD, RUDDY DIGGS and ML JONES DO [id number] DICTATION DATE: 08/25/18 1115 FULL CHARGE BOOKKEEPER: 08/25/18 1204 [facility] [place] 08/25/18 [place] [id number] [place] [id number]
--- NOTE | 2018-08-26 18:26 | HP ---
PATIENT: SANDEEP GAGNON MEDICAL RECORD: [id number] ACCOUNT: [id number] LOCATION:[facility] : 62 ADMISSION DATE: 08/25/18 PCP: CHELSY HENNESSY MD HISTORY AND PHYSICAL EXAMINATION CHIEF COMPLAINT: Colon polyp. 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 I am going to plan for colonoscopy with possible endoscopic mucosal resection, possible treatment with the argon plasma ice cream scooper. The risks, possible complications, and alternatives to the procedure were explained to the patient. He elects to proceed. SOCIAL HISTORY: He is a smoker. PAST MEDICAL AND SURGICAL HISTORY: COPD, coronary artery disease, hypertension, history of CABG times 3, history of multiple coronary stents, gastroesophageal reflux, and history of colon polyps. PHYSICAL EXAMINATION: GENERAL: The patient does not appear acutely ill. EARS: External ears appear normal. EYES: Extraocular movements are intact. NECK: Trachea is midline. CHEST: No intercostal retractions. 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 PLAN: Colonoscopy, polypectomy, possible endoscopic mucosal resection, possible treatment with the argon plasma ice cream scooper. This is a tattooed polyp. TRANSINT:[id number] Voice Confirmation ID: [id number] DOCUMENT ID: [id number] FELI WOODS MD at 1826 CC: CHELSY HENNESSY MD, RUDDY DIGGS and ML JONES DO [id number] DICTATION DATE: 08/25/18 1016 REGULATORY MANAGER: 08/25/18 1051 [facility] 08/25/18 [place] [id number] [place] [id number]
== END 2018-08-25 14:20 | disposition home or self-care (01) ==
LOC: D.OPS 08:39
PROVIDERS: Anesthesiology
DX: D12.5 Benign neoplasm of sigmoid colon (principal); D12.3 Benign neoplasm of transverse colon; K62.1 Rectal polyp; F17.200 Nicotine dependence, unspecified, uncomplicated; Z86.010 Personal history of colon polyps; J44.9 Chronic obstructive pulmonary disease, unspecified; I25.10 Atherosclerotic heart disease of native coronary artery without angina pectoris; Z95.1 Presence of aortocoronary bypass graft; Z95.5 Presence of coronary angioplasty implant and graft; I10 Essential (primary) hypertension; K21.9 Gastro-esophageal reflux disease without esophagitis; Z01.812 Encounter for preprocedural laboratory examination

== ENCOUNTER 2018-11-13 08:39 | Outpatient (CLI) | payer MEDICARE ==
[~2018-11-13] VITALS: Ht 162.6 cm; Wt 76.4 kg
--- NOTE | ~2018-11-13 | HEMODYNAMI ---
PATIENT:SANDEEP GAGNON MEDICAL RECORD: [id number] : 62 LOCATION:[facility] ADMISSION DATE: 11/13/18 Generatedon:11/13/201813:27 Patient name: SANDEEP GAGNON Patient #: [id number] SSN: DO B: 1960 Date of study: 11/13/2018 Page: Of Hemodynamic Procedure Report Patient Data Patient Demographics Procedure consent was obtained First Name: SANDEEP Gender: Male Last Name: KALIN : 1960 Middle Initial: THANIA Age: 58 year(s) Patient #: [id number] Race: Additional ID: [id number] Contact details [address]: [address] [place] [address] State: [place] City: [place] Zip code: [address] Past Medical History Allergies: No known allergies Admission Admission Data Admission Date: 11/13/2018 Admission Time: 8:39 Height (in.): 64 BSA: 1.82 (m2) Height (cm.): 162.56 BMI: 28.84 (kg/m2) Weight (lbs.): 168 Weight (kg.): 76.2 Lab Results Lab Result Date: 11/13/2018 Lab Result Time: 0:00 Biochemistry Name Units Result Min Max BUN mg/dl 14 --(--*-)-- 7 18 Creatinine mg/dl 1 --(--*-)-- 0.6 1.3 CBC Name Units Result Min Max Hematocrit % 44.2 --(*---)-- 42 54 Hemoglobin g/dl 15.5 --(-*--)-- 13.5 17.5 Procedure Procedure Types Cath Procedure Diagnostic Procedure [facility] w/Coronaries w/Grafts PCI Procedure AMI/SVG/SPECIAL WEAPONS AND TACTICS OFFICER PTCA or Stent SVG-BMS/SOLO Initial Procedure Description Procedure Date Procedure Date: 11/13/2018 Procedure Start Time: 12:59 Procedure End Time: 13:25 Procedure Staff Name Function Moshe Malhotra MD Performing Physician Erik Henson RT Monitor Ana Baldwin RT Scrub Gina Turcios RN Nurse Procedure Data Cath Procedure Fluoroscopy Diagnostic fluoroscopy Total fluoroscopy Time: 4.9 time: 4.9 min min Diagnostic fluoroscopy Total fluoroscopy dose: 610 dose: 610 mGy mGy Contrast Material Contrast Material Type Amount (ml) Isovue 300 76 Entry Location Entry Primary Successful Side Size Upsize Upsize Entry Closure Succes sful Closure Location (Fr) 1 (Fr) 2 (Fr) Remarks Device Remarks Femoral Right 5 Fr 6 Fr artery Short Estimated blood loss: 10 ml Diagnostic catheters Device Type Used For End Catheter Placement MULTIPACK Pigtail 5 Fr Procedure catheter MULTIPACK JL 4.0 5Fr Procedure catheter DIAGNOSTIC JL 5 5Fr Procedure catheter ([id number]) DIAGNOSTIC IMT 5Fr Procedure Catheter ([id number]) DIAGNOSTIC AR2 MOD 5 Fr Procedure catheter ([id number]) Procedure Medications Medication Administration Route Dosage 0.9% NaCl I.V. 100 ml/hr Oxygen etCO2 Nasal cannula 2 l/min Lidocaine 2% added to field 20 Heparin Flush Bag added to field 2 bags (1000units/500ml NS) Versed I.V. 2 mg Fentanyl I.V. 50 mcg Versed I.V. 1 mg Fentanyl I.V. 25 mcg Heparin Bolus I.V. 4000 units Integrilin (Bolus I.V. 6.8 ml 2mg/ml) Plavix P.O. 600 mg Integrilin (Bolus I.V. 6.8 ml 2mg/ml) Zofran I.V. 4 mg Morphine I.V. 4 mg Hemodynamics Rest BSA: 1.82 (m2) O2 Consumption: Estimated: 202.01 (ml/min) O2 Consumption indexed : Estimated:110.99 (ml/min/m) Heart Rate: 51 (bpm) Pressure Samples Time Site Value (mmHg) Purpose Heart Use Rate(bpm) 13:01 LV 166/17,1 Snapshot 33 Snapshots Pre Cath Intra NCS Post Cath Vital Signs Time Heart Resp SPO2 etCO2 NIBP (mmHg) Rhythm Pain Sedation Rate (ipm) (%) (mmHg) Status Level (bpm) 12:51:32 50 18 99 38 181/81(145) NSR 0 (11) 10(A) , No pain 12:55:47 60 17 98 38.8 146/95(127) NSR 0 (11) 10(A) , No pain 13:00:04 60 13 96 41.8 162/92(142) NSR 0 (11) 10(A) , No pain 13:04:17 64 14 96 43.3 139/92(113) NSR 0 (11) 9(A) , No pain 13:08:30 67 14 97 46.2 151/96(110) NSR 0 (11) 9(A) , No pain 13:12:39 68 16 97 40.2 144/106(121) NSR 0 (11) 9(A) , No pain 13:17:38 64 15 98 32 Measuring NSR 0 (11) 9(A) , No pain 13:18:29 68 13 97 29.1 196/99(120) NSR 6 (11) 10(A) , Intense 13:23:08 52 42 94 0.7 191/111(167) NSR 1 (11) 10(A) , Very mild Medications Time Medication Route Dose Verified Delivered Reason Notes Effectiveness by by 12:52:56 0.9% NaCl I.V. 100 Moshe Gina used for ml/hr Roscoe Turcios certified hyperbaric technologist 12:53:03 Oxygen etCO2 2 Moshe Gina used for Nasal l/min Roscoe Turcios procedure cannula RN 12:53:07 Lidocaine 2% added 20ml Moshe Moshe for local to vial Roscoe Malhotra MD anesthetic field 12:53:12 Heparin Flush added 2 Moshe Moshe used for Bag to bags Roscoe Malhotra MD procedure (1000units/500ml field NS) 12:58:10 Versed I.V. 2 mg Moshe Gina for sedation Roscoe Turcios RN 12:58:22 Fentanyl I.V. 50 Moshe Gina for sedation mcg Roscoe Turcios RN 13:03:57 Versed I.V. 1 mg Moshe Gina for sedation Roscoe Turcios RN 13:04:02 Fentanyl I.V. 25 Moshe Gina for sedation mcg Roscoe Turcios RN 13:09:03 Heparin Bolus I.V. 4000 Moshe Gina for verif ied units Roscoe Turcios anticoagulation with Dr. OSCAR Malhotra 13:10:18 Integrilin I.V. 6.8 Moshe Gina for waste d (Bolus 2mg/ml) ml Roscoe Turcios antiplatelet 3.2mL RN therapy 13:11:39 Plavix P.O. 600 Moshe Fuentes for mg Roscoe Turcios antiplatelet RN therapy 13:16:04 Integrilin I.V. 6.8 Moshe Fuentes for (Bolus 2mg/ml) ml Roscoe Turcios antiplatelet RN therapy 13:23:51 Zofran I.V. 4 mg Moshe Fuentes for nausea Roscoe Turcios RN 13:24:01 Morphine I.V. 4 mg Moshe Fuentes for chest pain Roscoe Turcios RN Procedure Log Time Note 12:32:55 Signed procedure consent form obtained from patient. 12:32:56 Diagnostic Cath status Elective 12:32:57 Time tracking: Regular hours (M-F 7:00 - 5:00) 12:32:59 Plan of Care:Hemodynamics will remain stable., Cardiac rhythm will remain stable., Comfort level will be maintained., Respiratory function will remain adequate., Patient/ family verbilizes understanding of procedure., Procedure tolerated without complication., Recovers from procedure without complications.. 12:33:08 H&P Date Dictated: 11/12/2018 Within 30 days and on chart., H&P Addendum completed by physician on day of procedure. (MUST COMPLETE FOR ALL OUTPATIENTS). 12:33:17 Patient allergic to No known allergies 12:33:29 Patient Weight : 168 lbs 12:33:33 Patient Height : 64 inches 12:34:48 Lab Result : Creatinine 1 mg/dl 12:34:48 Lab Result : BUN 14 mg/dl 12:34:48 Lab Result : Hematocrit 44.2 % 12:34:48 Lab Result : Hemoglobin 15.5 g/dl 12:35:54 Use device set Femoral Dx 12:35:55 ACIST Syringe (76189) opened to sterile field. 12:35:56 Bag Decanter (2002S) opened to sterile field. 12:35:57 Medline Cath Pack ([id number]) opened to sterile field. 12:35:58 DIAGNOSTIC WIRE .035 260cm J wire (460434) opened to sterile field. 12:36:02 ACIST Hand Control (44932) opened to sterile field. 12:36:03 ACIST Manifold (21521) opened to sterile field. 12:36:04 DIAGNOSTIC Multipack 5Fr catheter set (DS0321) opened to sterile field. 12:36:06 Tegaderm 4 x 4 (1626W) opened to sterile field. 12:36:17 SHEATH 5FR Hasty (UZO900) opened to sterile field. 12:44:53 Patient received from Pre/Post Procedure Room to CCL 1 Alert and oriented. Tansferred to table in Supine position. 12:44:55 Warm blankets applied, and ximena hugger turned on for patient comfort. 12:44:57 Correct patient and procedure confirmed by team. 12:44:58 ECG and BP/O2 sat monitors applied to patient. 12:50:11 Vital chart was started 12:52:56 0.9% NaCl 100 ml/hr I.V. was administered by Gina Turcios RN; used for procedure; 12:53:03 Oxygen 2 l/min etCO2 Nasal cannula was administered by Gina Turcios RN; used for procedure; 12:53:07 Lidocaine 2% 20ml vial added to field was administered by Moshe Malhotra MD; for local anesthetic; 12:53:12 Heparin Flush Bag (1000units/500ml NS) 2 bags added to field was administered by Moshe Malhotra MD; used for procedure; 12:54:04 Baseline sample Acquired. 12:54:14 Rhythm: sinus bradycardia 12:54:30 Baseline sample Acquired. 12:54:35 Full Disclosure recording started 12:54:38 Pre-procedure instructions explained to patient. 12:54:38 Pre-op teaching completed and patient verbalized understanding. 12:54:42 Family unavailable. 12:54:44 Patient NPO since Midnight. 12:54:56 Is the patient allergic to Iodine/contrast media? No. 12:54:59 Is patient on blood thinner?No 12:55:02 Patient diabetic? No. 12:55:04 ----Pre-sedation anethsthesia assessment.---- 12:55:07 Previous problem with sedation/anesthesia? No ? 12:55:11 Snore? Yes 12:55:12 Sleep apnea? No 12:55:14 Deviated septum? No 12:55:15 Opens mouth fully? Yes 12:55:16 Sticks out tongue? Yes 12:55:19 Airway obstruction? Yes ? 12:55:39 COPD 12:55:52 Dentures? No NO TEETH 12:55:59 Pre procedure: right dorsailis pedis pulse 2+ Normal; easily identifiable; not easily obliterated 12:56:07 Patient pain scale 0/10 ?. 12:56:19 IV patent on arrival in left forearm with 0.9% NaCl at [facility]. 12:56:32 Lab results completed and on chart. 12:56:37 Right groin area was prepped with chlora-prep and draped in sterile fashion 12:56:39 Alarms reviewed by R. N. 12:56:40 Sharps counted by scrub and verified by R.N. 12:57:09 Physician arrived 12:57:10 --------ALL STOP TIME OUT------ 12:57:17 Final Timeout: patient, procedure, and site verified with staff and physician. All members of the team are in agreement. 12:57:20 Right groin site verified by team. 12:57:25 Maximum allowable Isovue 300 dose 300ml. Physician notified. (300ml for normal creatinines. For patients with creatinine of 1.7 or higher multiply weight(kg) x 5 divided by creatinine.) 12:57:30 Fire Safety Assessment: A--An alcohol-based skin anteseptic being used preoperatively., C--Open oxygen or nitrous oxide is being used., D--An ESU, laser, or fiber-optic light is being used. 12:57:34 Physical assessment completed. ASA score P 2 - A patient with mild systemic disease as per Moshe Malhotra MD. 12:57:40 Sedation plan: IV Moderate Sedation Medication:Versed, Fentanyl 12:58:00 Zero performed for pressure channel P1 12:58:10 Versed 2 mg I.V. was administered by Gina Turcios RN; for sedation; 12:58:22 Fentanyl 50 mcg I.V. was administered by Gina Turcios RN; for sedation; 12:59:22 Procedure started. 12:59:27 Local anesthetic to right femoral artery with Lidocaine 2% by Moshe Malhotra MD.INITIAL ACCESS ONLY 13:00:17 A 5 Fr sheath was inserted into the Right Femoral artery 13:00:28 A MULTIPACK Pigtail 5 Fr catheter was advanced over the wire and used for Procedure. 13:01:47 LV gram done using ANSARI 13:01:56 EF : 40 % 13:01:58 LV hemodynamics recorded. 13:02:07 Catheter removed. 13:02:34 A MULTIPACK JL 4.0 5Fr catheter was advanced over the wire and used for Procedure. 13:02:49 Catheter removed. 13:03:29 UNABLE TO CANNULATE 13:03:50 A DIAGNOSTIC JL 5 5Fr catheter ([id number]) was advanced over the wire and used for Procedure. 13:03:57 Versed 1 mg I.V. was administered by Gina Turcios RN; for sedation; 13:04:02 Fentanyl 25 mcg I.V. was administered by Gina Turcios RN; for sedation; 13:05:45 Catheter removed. 13:05:55 LEFT SYSTEM DOWN 13:06:09 A DIAGNOSTIC IMT 5Fr Catheter ([id number]) was advanced over the wire and used for Procedure. 13:06:22 CUMMINGS to LAD angiography performed. 13:07:20 A DIAGNOSTIC AR2 MOD 5 Fr catheter ([id number]) was advanced over the wire and used for Procedure. 13:07:37 SVG to OM angiography performed. 13:07:40 SVG to RCA angiography performed. 13:08:11 SHEATH 6FR Hasty (XRS821) opened to sterile field. 13:08:11 INFLATOR Merit BasixCompak (QX8336) opened to sterile field. 13:08:12 GUIDE 6FR AR 2.0 catheter ([id number]) opened to sterile field. 13:08:15 Catheter removed. 13:08:22 Sheath upsized to a 6 Fr Short. 13:08:54 Proceeding to intervention. 13:09:03 Heparin Bolus 4000 units I.V. was administered by Gina Turcios RN; for anticoagulation; verified with Dr. Malhotra 13:09:03 6 Fr AR 2 guide catheter was inserted over the wire 13:09:51 CHOICE wire advanced. 13:10:11 CHOICE PT Extra Support 182cm wire ([id number]) opened to sterile field. 13:10:18 Integrilin (Bolus 2mg/ml) 6.8 ml I.V. was administered by Gina Turcios RN; for antiplatelet therapy; wasted 3.2mL 13:10:24 Wire advanced across lesion. 13:11:39 Plavix 600 mg P.O. was administered by Gina Turcios RN; for antiplatelet therapy; 13:13:00 Place stent Inflation Number: 1 A DWIGHT RX 3.5 x 22 stent ([id number]) was prepped and advanced across the Aorta Left -> 1st Ob Brenda. The stent was deployed at 15 ROYAL for 0:10 (min:sec). 13:13:11 Stent catheter was removed intact over wire. 13:13:13 Wire removed. 13:13:25 Wire redirected to RCA GRAFT. 13:14:25 Place stent Inflation Number: 1 A DWIGHT RX 3.5 x 22 stent ([id number]) was prepped and advanced across the Aorta Right -> Prox RCA. The stent was deployed at 15 ROYAL for 0:10 (min:sec). 13:15:19 Stent catheter was removed intact over wire. 13:15:20 Wire removed. 13:15:20 Guide catheter removed. 13:15:34 EXOSEAL 6Fr (EX600) opened to sterile field. 13:16:04 Integrilin (Bolus 2mg/ml) 6.8 ml I.V. was administered by Gina Turcios RN; for antiplatelet therapy; 13:18:49 Procedure ended.(Physican Out) 13:20:52 Fluoroscopy time 04.90 minutes. 13:21:02 Flurop Dose total: 610 13:21:02 Fluoroscopy dose: 610 mGy 13:21:07 Contrast amount:Isovue 300 76ml. 13:21:09 Sharps counted by scrub and verified by R.N. 13:21:12 Insertion/operative site no bleeding no hematoma. 13:21:20 Post-op/insertion site Right Femoral artery dressed using a 4 x 4 and Tegaderm. 13:21:26 Post right femoral artery:stable 13:22:11 Post Procedure Pulses reassessed and unchanged 13:22:26 Post-procedure physical assessment completed. ASA score P 2 - A patient with mild systemic disease as per Moshe Malhotra MD. 13:22:30 Post procedure rhythm: sinus rhythm 13:23:28 PATIENT HAVING SOME CHEST PAIN. DR. MALHOTRA IN ROOM STATES THAT IT IS DISTAL IMBOLI. WILL RESOLVE WITH INTEGRILLIN 13:23:51 Zofran 4 mg I.V. was administered by Gina Turcios RN; for nausea; 13:24:01 Morphine 4 mg I.V. was administered by Gina Turcios RN; for chest pain; 13:24:15 Procedure type changed to Cath procedure, Diagnostic procedure, LHC, LHC w/Coronaries w/Grafts, PCI procedure, AMI/SVG/SPECIAL WEAPONS AND TACTICS OFFICER PTCA or Stent, SVG-BMS/SOLO Initial 13:24:22 Estimated blood loss: 10 ml 13:24:24 Patient needs reinforcement of post procedure teaching. 13:24:59 Procedure and supply charges have been captured, reviewed, submitted and are correct. 13:25:00 Vital chart was stopped 13:25:16 See physician's report for complete and final results. 13:25:18 Report given to Pre/Post Procedure Room. 13:25:22 Patient transfered to Pre/Post Procedure Room with Stretcher. 13:25:25 Procedure ended. 13:25:25 Full Disclosure recording stopped 13:25:28 End room use (Document Last) Intervention Summary Intervention Notes Time ActionType Lesion and Equipment Used Action# Pressure Duration Attributes 13:13:00 Place stent Aorta Left DWIGHT RX 3.5 x 1 15 00:10 -> 1st Ob 22 stent Brenda ([id number]) 13:14:25 Place stent Aorta Right DWIGHT RX 3.5 x 1 15 00:10 -> Prox RCA 22 stent ([id number]) Device Usage Item Name Manufacture Quantity Catalog Number Hospital Part Current M inimal Lot# / Charge Number Stock Stock Serial# Code ACIST Syringe Acist 1 15559 959257 152421 765024 2 0 (10801) Medical Systems Inc Bag Decanter Microtek 1 295369 50663 556798 5 () Medical Inc. Medline Cath Medline 1 [id number] 424644 61269 342716 5 Pack ([id number]) DIAGNOSTIC [place] 1 924140 243291 530878 268162 3 0 WIRE .035 260cm J wire (193458) ACIST Hand Acist 1 15066 308773 317608 628544 5 Control Medical (65705) Systems Inc ACIST Manifold Acist 1 04388 463053 311478 448819 5 (12556) Medical Systems Inc DIAGNOSTIC Cardinal 1 PS8291 541674 71849 780110 3 0 Multipack 5Fr Health catheter set (FD7773) Tegaderm 4 x 4 3M 1 1626W 498592 239558 829575 5 (1626W) SHEATH 5FR Terumo 1 QLT693 172011 900305 055971 5 Hasty (BKX856) MULTIPACK Cardinal 1 293518 5 Pigtail 5 Fr Health catheter MULTIPACK JL Cardinal 1 146295 5 4.0 5Fr Health catheter DIAGNOSTIC JL Cardinal 1 [id number] 541309 159932 623270 5 5 5Fr catheter Health (344508J) DIAGNOSTIC IMT [place] 1 [id number] 557693 289523 06681 5 5Fr Catheter Scientific ([id number]) DIAGNOSTIC AR2 Cardinal 1 073329O 521269 889337 322397 2 0 MOD 5 Fr Health catheter (387852Y) SHEATH 6FR Terumo 1 IPD021 854636 220266 665089 4 0 Hasty (CHQ760) INFLATOR Merit Merit 1 OV9591 072131 160860 311188 [address] [facility] (CR7361) GUIDE 6FR AR Medtronic 1 II9SN35 206044 79947 388654 1 2.0 catheter (LJ4LS36) CHOICE PT [place] 1 [id number] 838423 844150 686820 5 Extra Support Scientific 182cm wire ([id number]) DWIGHT RX 3.5 x Medtronic 2 [id number] 989758 9683748 121355 5 [id number] 22 stent [id number] ([id number]) EXOSEAL 6Fr Cardinal 1 EX600 716395 632688 524380 1 0 (EX600) Health Signature Audit [place] Stage Time Signature Unsigned Intra-Procedure 11/13/2018 Erik Henson 1:27:40 PM RT(R) (CV) Signatures Monitor : Erik Henson RT Signature : Date : Time : [facility] [address] [place] [address]
--- NOTE | ~2018-11-13 | OP ---
PATIENT NAME: SANDEEP GAGNON MEDICAL RECORD: [id number] :62 LOCATION:D.CAT ADMISSION DATE: SURGEON: RUDDY DIGGS MD DATE OF OPERATION: 11/13/2018 PROCEDURES: 1. PTCA stent vein graft to RCA. 2. PTCA stent vein graft to left circumflex. 3. Left heart catheterization. 4. Selective coronary angiography. 5. Left ventriculogram. INDICATION: Angina and coronary artery disease. PROCEDURE PERFORMED: After informed consent was obtained and after a detailed description of risks, benefits as well as alternative therapies, the patient elected to proceed with angiogram and angioplasty. The right femoral area was prepped and draped in normal sterile fashion. Right femoral artery was cannulated via modified Seldinger technique with placement of 6-Amharic sheath. All catheters exchanged through this sheath. FINDINGS: Left ventriculogram was performed in standard 30-degree ANSARI view, reveals global hypokinesis, ejection fraction 40%. SELECTIVE CORONARY ANGIOGRAPHY: 1. Left main is closed. 2. Right coronary artery is closed. 3. CUMMINGS to the LAD is widely patent. Distal LAD is widely patent. 4. Vein graft to the circumflex is patent; however, there is 80% stenosis proximally. 5. Vein graft to the RCA is patent; however, there is 80% stenosis in mid vessel. PTCA STENT OF THE VEIN GRAFT TO THE CIRCUMFLEX AND VEIN GRAFT TO THE RCA: Both vein grafts were addressed with a 3.5 x 22 mm Gorge stents. Result was 0% residual stenosis. OVERALL IMPRESSION: Successful percutaneous transluminal coronary angioplasty stent of the vein graft to the circumflex as well as a vein graft to the right coronary artery, both going from 80% initial stenosis to 0% residual. TRANSINT:[id number] Voice Confirmation ID: [id number] DOCUMENT ID: [id number] RUDDY DIGGS MD CC: [id number] DICTATION DATE: 11/13/18 1322 BODY PAINTER: 11/13/18 1331 REG [facility] [address] [place] [id number]
[~2018-11-13 08:39] MED LIST changes: +ISORDIL5 MG PO; +PEPCID AC20 MG PO; +ZOLOFT100 MG PO
[2018-11-13] MEDS ORDERED: ALBUTEROL SULF8.5 GM INH (09:04)
[2018-11-13 09:13] VITALS: BP 136/85; Ht 162.6 cm; Wt 76.4 kg
[2018-11-13 09:27] LABS: BASOPHILS 0.3 % (0-2); EOSINOPHILS 1.3 % (0-7); HEMATOCRIT 44.2 % (42.0-54.0); HEMOGLOBIN 15.5 g/dL (13.5-17.5); IMMATURE GRANULOCYTES 0.3 % (0-5); LYMPHOCYTES 25.2 % (15-50); MCH 32.3 pg (26.0-34.0); MCHC 35.1 g/dL (31.0-37.0); MCV 92.1 fL (80.0-100.0); MEAN PLATELET VOLUME 9.4 fL (7.4-10.4); MONOCYTES 7.6 % (2-11); NEUTROPHILS 65.3 % (40-80); PLATELET COUNT 271 10x3/uL (130-400); RDW 15.3 % (11.5-14.5); WBC 11.6 10x3/uL (4.8-10.8)
[2018-11-13 09:32] LABS: CALC OSMOLALITY 278 mosm/kg (275-300); CALCIUM 8.7 mg/dL (8.5-10.1); CARBON DIOXIDE 29.7 mmol/L (21.0-32.0); CHLORIDE - SERUM 104 mmol/L (98-107); GLUCOSE 103 mg/dL (74-106); POTASSIUM - SERUM 4.1 mmol/L (3.5-5.1); SODIUM 139 mmol/L (136-145); UREA NITROGEN 14 mg/dL (7-18); eGFR NON AFRICAN AMERICAN 82 mL/min (90-120)
[2018-11-13] MEDS ORDERED: PLAVIX75 MG PO (13:42)
[2018-11-13] MEDS ORDERED: BAYER CHEWABLE81 MG PO (13:42)
--- NOTE | 2018-11-13 13:55 | NUR ---
PATIENT RESTING, RIGHT GROIN DRESSING IS CDI, NO S/S OF BLEEDING OR HEMATOMA. NO C/O PAIN, NUMBNESS, OR TINGLING. WILL CONTINUE TO MONITOR.
--- NOTE | 2018-11-13 14:25 | NUR ---
PATIENT INTERMITTENTLY RESTING, WAKES TO VERBAL STIMULI. 0.1 MG CLONIDINE GIVEN ORDERED FOR HYPERTENSION, WILL CONTINUE TO MONITOR. RIGHT GROIN DRESSING IS CDI, NO S/S OF BLEEDING OR HEMATOMA. TOLERATING PO FLUIDS, NO N/V. FAMILY AT BEDSIDE.
--- NOTE | 2018-11-13 14:55 | NUR ---
PATIENT AWAKE, VSS ON ROOM AIR. RIGHT GROIN DRESSING IS CDI, NO S/S OF BLEEDING OR HEMATOMA. NO C/O PAIN, NUMBNESS, OR TINGLING.
--- NOTE | 2018-11-13 15:25 | NUR ---
PATIENT AWAKE, VSS ON ROOM AIR. RIGHT GROIN DRESSING IS CDI, NO S/S OF BLEEDING OR HEMATOMA. NO C/O PAIN, NUMBNESS, OR TINGLING. FAMILY PRESENT AT BEDSIDE.
--- NOTE | 2018-11-13 15:55 | NUR ---
PATIENT RESTING, VSS ON ROOM AIR. RIGHT GROIN DRESSING IS CDI, NO S/S OF BLEEDING OR HEMATOMA. NO C/O PAIN, NUMBNESS, OR TINGLING. NO N/V.
--- NOTE | 2018-11-13 16:25 | NUR ---
HEAD OF BED ELEVATED TO 30 DEGREES, RIGHT GROIN DRESSING IS CDI, NO S/S OF BLEEDING OR HEMATOMA. NO C/O PAIN, NUMBNESS, OR TINGLING. VSS ON ROOM AIR.
--- NOTE | 2018-11-13 16:55 | NUR ---
HEAD OF BED AT 90 DEGREES, PATIENT EATING AND DRINKING, NO N/V. VSS ON ROOM AIR. RIGHT GROIN DRESSING IS CDI, NO S/S OF BLEEDING OR HEMATOMA. NO C/O PAIN, NUMBNESS, OR TINGLING. VOIDED PER URINAL WITHOUT DIFFICULTY. IV REMOVED. EDUCATION REGARDING DISCHARGE INSTRUCTIONS AND MEDICATION COMPLIANCE (EMPHASIS ON PLAVIX PRESCRIPTION ONCE DAILY STARTING 11/14/18), PATIENT AND FIANCE VOICE UNDERSTANDING, ALL QUESTIONS ANSWERED.
--- NOTE | 2018-11-13 17:15 | NUR ---
PATIENT TRANSPORTED VIA WHEELCHAIR TO CAR WITH [employer]ANCE DRIVING, ALL BELONGINGS WITH PATIENT.
== END 2018-11-13 17:15 ==
LOC: D.CATH 08:39
PROVIDERS: ATTEND Internal Medicine Interventional Cardiology
DX: I25.110 Atherosclerotic heart disease of native coronary artery with unstable angina pectoris (principal)
CPT/HCPCS: C9604 ×2; 93459

== ENCOUNTER 2018-11-16 09:31 | Outpatient (CLI) | payer MEDICARE ==
[~2018-11-16] VITALS: Ht 162.6 cm; Wt 75.5 kg
--- NOTE | ~2018-11-16 | OP ---
PATIENT NAME: SANDEEP GAGNON MEDICAL RECORD: [id number] :62 LOCATION:D.CAT ADMISSION DATE: SURGEON: RUDDY DIGGS MD DATE OF OPERATION: 11/16/2018 PROCEDURES: 1. Selective coronary angiography. 2. Selective vein graft angiography. 3. CUMMINGS angiography. 4. PTCA left circumflex through patent vein graft. DESCRIPTION OF PROCEDURE IN DETAIL: After informed consent was obtained and after a detailed description of risks, benefits as well as alternative therapies, the patient elected to proceed with angiogram and angioplasty. The right femoral area was prepped and draped in normal sterile fashion. Right femoral artery was cannulated via modified Seldinger technique with placement of 6-Icelandic sheath. All catheters exchanged through this sheath. FINDINGS: 1. The CUMMINGS is widely patent to the LAD. Distal LAD is widely patent. 2. Vein graft to the RCA is patent. Distal RCA is widely patent. 3. Vein graft to the circumflex is widely patent. Distal circumflex in 1 branch has 99% stenosis. PTCA OF THE CIRCUMFLEX THROUGH THE VEIN GRAFT: We ballooned this with a 1.5 and 2.0 balloon. Result was 0% residual stenosis. OVERALL IMPRESSION: Successful percutaneous transluminal coronary angiography distal circumflex through the patent vein graft going from 99% initial stenosis to 0% residual. TRANSINT:[id number] Voice Confirmation ID: [id number] DOCUMENT ID: [id number] RUDDY DIGGS MD CC: [id number] DICTATION DATE: 11/16/18 1219 SENIOR DEVOPS ENGINEER: 11/16/18 1226 REG [facility] [address] [place] [address]
--- NOTE | ~2018-11-16 | HEMODYNAMI ---
PATIENT:SANDEEP GAGNON MEDICAL RECORD: [id number] : 62 LOCATION:[facility] ADMISSION DATE: 11/16/18 Generatedon:11/16/201812:21 Patient name: SANDEEP GAGNON Patient #: [id number] SSN: DO B: 1960 Date of study: 11/16/2018 Page: Of Hemodynamic Procedure Report Patient Data Patient Demographics Procedure consent was obtained First Name: SANDEEP Gender: Male Last Name: KALIN : 1960 Middle Initial: THANIA Age: 58 year(s) Patient #: [id number] Race: Additional ID: [id number] Contact details Address: [address] [place] [address] State: [place] City: [place] Zip code: [address] Past Medical History Allergies: No known allergies Admission Admission Data Admission Date: 11/16/2018 Admission Time: 9:31 Weight (lbs.): 165.35 Weight (kg.): 75 Lab Results Lab Result Date: 11/16/2018 Lab Result Time: 9:30 Biochemistry Name Units Result Min Max BUN mg/dl 12 --(-*--)-- 7 18 Creatinine mg/dl 1 --(--*-)-- 0.6 1.3 CBC Name Units Result Min Max Hematocrit % 46 --(-*--)-- 42 54 Hemoglobin g/dl 16 --(--*-)-- 13.5 17.5 Procedure Procedure Types Cath Procedure Diagnostic Procedure LHC Coronaries w/Grafts Sedation Charges Moderate Sedation up to 15 minutes PCI Procedure PTCA PTCA Initial Procedure Description Procedure Date Procedure Date: 11/16/2018 Procedure Start Time: 12:00 Procedure End Time: 12:16 Procedure Staff Name Function Sanjay Palafox RN Nurse Moshe Malhotra MD Performing Physician Art Betancourt RT Monitor Ana Baldwin RT Scrub Procedure Data Cath Procedure Fluoroscopy Diagnostic fluoroscopy Total fluoroscopy Time: 5.9 time: 5.9 min min Diagnostic fluoroscopy Total fluoroscopy dose: 715 dose: 715 mGy mGy Contrast Material Contrast Material Type Amount (ml) Isovue 300 78 Entry Location Entry Primary Successful Side Size Upsize Upsize Entry Closure Succes sful Closure Location (Fr) 1 (Fr) 2 (Fr) Remarks Device Remarks Femoral Right 5 Fr 6 Fr Exoseal artery Short Estimated blood loss: 10 ml Diagnostic catheters Device Type Used For End Catheter Placement DIAGNOSTIC 3DRC 5Fr Procedure catheter ([id number]) DIAGNOSTIC AR2 MOD 5 Fr Procedure catheter ([id number]) Procedure Complications No complications Procedure Medications Medication Administration Route Dosage Oxygen etCO2 Nasal cannula 2 l/min Lidocaine 2% added to field 20 Heparin Flush Bag added to field 2 bags (1000units/500ml NS) 0.9% NaCl I.V. 100 ml/hr Versed I.V. 2 mg Fentanyl I.V. 100 mcg Heparin Bolus I.V. 4000 units Fentanyl I.V. 100 mcg Nitroglycerin IC/IA I.C. 300 mcg Versed I.V. 1 mg Hemodynamics Rest HGB: 16 (g/dl) Heart Rate: 62 (bpm) Snapshots Pre Cath Intra NCS Post Cath Vital Signs Time Heart Resp SPO2 etCO2 NIBP (mmHg) Rhythm Pain Sedation Rate (ipm) (%) (mmHg) Status Level (bpm) 11:55:14 61 19 94 0 135/86(112) NSR 0 (11) 10(A) , No pain 11:59:26 61 13 96 28.5 129/89(105) NSR 0 (11) 10(A) , No pain 12:03:39 66 12 97 35.4 147/77(129) NSR 0 (11) 9(A) , No pain 12:07:56 67 12 98 33.8 139/81(114) NSR 0 (11) 9(A) , No pain 12:12:12 70 14 98 36.1 137/85(110) NSR 0 (11) 9(A) , No pain 12:16:24 68 13 96 34.6 113/74(97) NSR 0 (11) 10(A) , No pain Medications Time Medication Route Dose Verified Delivered Reason Notes Effectiveness by by 11:41:05 Oxygen etCO2 2 Moshe Grace used for Nasal l/min Roscoe Palafox recovery room rn cannula 11:42:12 Lidocaine 2% added 20ml Moshe Mesa for local to vial Rsocoe Malhotra MD anesthetic field 11:42:18 Heparin Flush added 2 Moshe Mesa used for Bag to bags Roscoe Malhotra MD procedure (1000units/500ml field NS) 11:42:27 0.9% NaCl I.V. 100 Moshe Grace Per physician ml/hr Roscoe Palafox RN 11:58:36 Versed I.V. 2 mg Moshe Grace for sedation Roscoe Palafox RN 11:58:43 Fentanyl I.V. 100 Moshe Grace for sedation mcg Roscoe Palafox RN 12:03:23 Heparin Bolus I.V. 4000 Moshe Kolbie for verif ied units Roscoe Palafox RN anticoagulation with dr malhotra 12:05:01 Versed I.V. 1 mg Moshe Mesa for sedation Roscoe Malhotra MD 12:05:38 Fentanyl I.V. 100 Moshe Grace for sedation mcg Roscoe Palafox RN 12:12:47 Nitroglycerin I.C. 300 Moshe Mesa for IC/IA mcg Roscoe Malhotra MD vasodilation Procedure Log Time Note 11:38:07 Sanjay Palafox RN sent for patient. Start room use. 11:38:08 Signed procedure consent form obtained from patient. 11:38:09 Diagnostic Cath status Elective 11:38:10 Time tracking: Regular hours (M-F 7:00 - 5:00) 11:38:14 Plan of Care:Hemodynamics will remain stable., Cardiac rhythm will remain stable., Comfort level will be maintained., Respiratory function will remain adequate., Patient/ family verbilizes understanding of procedure., Procedure tolerated without complication., Recovers from procedure without complications.. 11:38:50 Patient Weight : 165.35 lbs 11:41:05 Oxygen 2 l/min etCO2 Nasal cannula was administered by Sanjay Palafox RN; used for procedure; 11:41:12 Patient received from Pre/Post Procedure Room to CCL 1 Alert and oriented. Tansferred to table in Supine position. 11:41:13 Warm blankets applied, and ximena hugger turned on for patient comfort. 11:41:14 Correct patient and procedure confirmed by team. 11:41:15 ECG and BP/O2 sat monitors applied to patient. 11:41:18 Pre-procedure instructions explained to patient. 11:41:19 Pre-op teaching completed and patient verbalized understanding. 11:42:12 Lidocaine 2% 20ml vial added to field was administered by Moshe Malhotra MD; for local anesthetic; 11:42:18 Heparin Flush Bag (1000units/500ml NS) 2 bags added to field was administered by Moshe aMlhotra MD; used for procedure; 11:42:27 0.9% NaCl 100 ml/hr I.V. was administered by Sanjay Palafox RN; Per physician; 11:54:08 Vital chart was started 11:54:10 Baseline sample Acquired. 11:54:12 Rhythm: sinus rhythm 11:54:14 Full Disclosure recording started 11:55:02 H&P Date Dictated: 11/13/2018 Within 30 days and on chart., H&P Addendum completed by physician on day of procedure. (MUST COMPLETE FOR ALL OUTPATIENTS). 11:55:06 Family in waiting room. 11:55:08 Patient NPO since Midnight. 11:55:15 Patient allergic to No known allergies 11:55:16 Is the patient allergic to Iodine/contrast media? No. 11:55:50 Is patient on blood thinner?Yes 11:55:52 ACC The patient was administered the following blood thiners within the last 24 hours: ACCPlavix 11:55:54 Patient diabetic? No. 11:55:56 Previous problem with sedation/anesthesia? No ? 11:55:58 Snore? Yes 11:55:59 Sleep apnea? No 11:56:01 Opens mouth fully? Yes 11:56:01 Deviated septum? No 11:56:02 Sticks out tongue? Yes 11:56:07 Airway obstruction? Yes COPD 11:56:11 Dentures? No ? 11:56:14 Pre procedure: left dorsailis pedis pulse 2+ Normal; easily identifiable; not easily obliterated 11:56:15 Patient pain scale 0/10 ?. 11:56:19 IV patent on arrival in left forearm with 0.9% NaCl at [facility]. 11:56:48 Lab Result : Hemoglobin 16 g/dl 11:56:48 Lab Result : Hematocrit 46 % 11:56:48 Lab Result : BUN 12 mg/dl 11:56:48 Lab Result : Creatinine 1 mg/dl 11:57:07 Lab results completed and on chart. 11:57:10 Left groin area was prepped with chlora-prep and draped in sterile fashion 11:57:11 Alarms reviewed by R. N. 11:57:12 Sharps counted by scrub and verified by R.N. 11:57:14 Use device set Femoral Dx 11:57:15 Bag Decanter (2002S) opened to sterile field. 11:57:15 ACIST Syringe (16345) opened to sterile field. 11:57:16 Medline Cath Pack ([id number]) opened to sterile field. 11:57:17 ACIST Manifold (21979) opened to sterile field. 11:57:17 ACIST Hand Control (06197) opened to sterile field. 11:57:18 Tegaderm 4 x 4 (1626W) opened to sterile field. 11:57:19 SHEATH 5FR [place] (SYI129) opened to sterile field. 11:57:20 DIAGNOSTIC WIRE .035 260cm J wire (314586) opened to sterile field. 11:57:28 Physician arrived 11:57:29 --------ALL STOP TIME OUT------ 11:57:30 Final Timeout: patient, procedure, and site verified with staff and physician. All members of the team are in agreement. 11:57:35 Left groin site verified by team. 11:57:37 Maximum allowable Isovue 300 dose 300ml. Physician notified. (300ml for normal creatinines. For patients with creatinine of 1.7 or higher multiply weight(kg) x 5 divided by creatinine.) 11:57:41 Fire Safety Assessment: A--An alcohol-based skin anteseptic being used preoperatively., C--Open oxygen or nitrous oxide is being used., D--An ESU, laser, or fiber-optic light is being used. 11:57:43 Physical assessment completed. ASA score P 2 - A patient with mild systemic disease as per Moshe Malhotra MD. 11:57:45 Sedation plan: IV Moderate Sedation Medication:Versed, Fentanyl 11:58:36 Versed 2 mg I.V. was administered by Sanjay Palafox RN; for sedation; 11:58:43 Fentanyl 100 mcg I.V. was administered by Sanjay Palafox RN; for sedation; 12:00:07 Procedure started. 12:00:16 Local anesthetic to left femerol artery with Lidocaine 2% by Moshe Malhotra MD.INITIAL ACCESS ONLY 12:00:22 A 5 Fr sheath was inserted into the Right Femoral artery 12:00:37 A DIAGNOSTIC 3DRC 5Fr catheter ([id number]) was advanced over the wire and used for Procedure. 12:00:51 CUMMINGS to LAD angiography performed. 12:01:02 Catheter exchanged over wire. 12:01:08 A DIAGNOSTIC AR2 MOD 5 Fr catheter ([id number]) was advanced over the wire and used for Procedure. 12:02:01 SVG to Circ angiography performed. 12:02:28 Catheter removed. 12:02:37 SHEATH 6FR [place] (DXI326) opened to sterile field. 12:02:38 INFLATOR Merit BasixCompak (RY2348) opened to sterile field. 12:02:46 FIELDER XT J 300cm guide wire ([id number]) opened to sterile field. 12:03:23 Heparin Bolus 4000 units I.V. was administered by Sanjay Palafox RN; for anticoagulation; verified with dr malhotra 12:03:57 GUIDE 6FR AR 2.0 catheter (DA3FI85) opened to sterile field. 12:04:04 Sheath upsized to a 6 Fr Short. 12:04:11 6 Fr AR 2 guide catheter was inserted over the wire 12:04:16 FEILDER wire advanced. 12:05:01 Versed 1 mg I.V. was administered by Moshe Malhotra MD; for sedation; 12:05:10 Wire advanced across lesion. 12:05:38 Fentanyl 100 mcg I.V. was administered by Sanjay Palafox RN; for sedation; 12:07:33 Inflate balloon Inflation number: 1 A EMERGE OTW 1.5 x 15 balloon ([id number]) was prepped and advanced across the Aorta Left -> 1st Ob Brenda, then inflated to 17 ROYAL for 0:10 (min:sec). 12:08:16 Balloon removed over the wire. 12:09:48 Inflate balloon Inflation number: 2 A EMERGE OTW 2.0 x 8 balloon ([id number]) was prepped and advanced across the Aorta Left -> 1st Ob Brenda, then inflated to 21 ROYAL for 0:10 (min:sec). 12:12:47 Nitroglycerin IC/IA 300 mcg I.C. was administered by Moshe Malhotra MD; for vasodilation; 12:13:22 Balloon removed over the wire. 12:13:23 Wire removed. 12:13:24 Guide catheter removed. 12:13:38 EXOSEAL 6Fr (EX600) opened to sterile field. 12:13:48 Sheath removed intact; hemostasis achieved with Exoseal to the Right Femoral artery. 12:13:50 Procedure ended.(Physican Out) 12:13:58 Fluoroscopy time 05.90 minutes. 12:14:02 Fluoroscopy dose: 715 mGy 12:14:02 Flurop Dose total: 715 12:14:05 Contrast amount:Isovue 300 78ml. 12:14:07 Insertion/operative site no bleeding no hematoma. 12:14:07 Sharps counted by scrub and verified by R.N. 12:14:11 Post-op/insertion site Right Femoral artery dressed using a 4 x 4 and Tegaderm. 12:14:15 Post right femoral artery:stable, soft, clean and dry 12:15:21 Post Procedure Pulses reassessed and unchanged 12:15:25 Post procedure rhythm: sinus rhythm 12:15:28 Estimated blood loss: 10 ml 12:15:29 Post procedure instruction explained to patient.Patient verbalizes understanding. 12:15:30 Patient needs reinforcement of post procedure teaching. 12:16:19 Procedure type changed to Cath procedure, Diagnostic procedure, LHC, Coronaries w/Grafts, Sedation Charges, Moderate Sedation up to 15 minutes, PCI procedure, PTCA, PTCA Initial 12:16:43 Procedure and supply charges have been captured, reviewed, submitted and are correct. 12:16:45 Procedure Complication : No complications 12:16:47 See physician's report for complete and final results. 12:16:47 Vital chart was stopped 12:16:49 Report given to Pre/Post Procedure Room. 12:16:51 Patient transfered to Pre/Post Procedure Room with Stretcher. 12:16:56 Full Disclosure recording stopped 12:16:56 Procedure ended. 12:17:07 End room use (Document Last) Intervention Summary Intervention Notes Time ActionType Lesion and Equipment Action# Pressure Duration Attributes Used 12:07:33 Inflate Aorta Left EMERGE OTW 1 17 00:10 balloon -> 1st Ob 1.5 x 15 Brenda balloon ([id number]) 12:09:48 Inflate Aorta Left EMERGE OTW 2 21 00:10 balloon -> 1st Ob 2.0 x 8 Brenda balloon ([id number]) Device Usage Item Name Manufacture Quantity Catalog Number Hospital Part Current Min imal Lot# / Charge Number Stock Stock Serial# Code ACIST Acist 1 93844 882631 844154 486114 20 Syringe Medical (63664) Systems Inc Bag Decanter Microtek 1 2001S 499480 67490 495286 5 (2001S) Medical Inc. Medline Cath Medline 1 [id number] 338054 34613 052510 5 Pack ([id number]) ACIST Hand Acist 1 33255 163846 766954 970429 5 Control Medical (47209) Systems Inc ACIST Acist 1 30283 953228 578469 779519 5 Manifold Medical (57160) Systems Inc Tegaderm 4 x 3M 1 1626W 815488 833858 300649 5 4 (1626W) SHEATH 5FR Terumo 1 SAC868 186472 631875 834585 5 [place] (OJD916) DIAGNOSTIC [facility] [place] 1 464459 210313 598679 804674 30 WIRE .035 260cm J wire (485968) DIAGNOSTIC Cardinal 1 [id number] 002003 599119 800638 9 3DRC 5Fr Health catheter (317295G) DIAGNOSTIC Cardinal 1 [id number] 933982 387523 417753 20 AR2 MOD 5 Fr Health catheter (110439I) SHEATH 6FR Terumo 1 JUA123 689797 578121 482061 40 [place] (YKY525) INFLATOR [facility] 1 TW8794 839630 952684 621819 15 [facility] Medical BasixCompak (JP5974) FIELDER XT J [place] 1 [id number] 138718 095488 998143 5 300cm guide Vascular wire ([id number]) GUIDE 6FR AR Medtronic 1 QA6EM60 343729 59380 492134 1 2.0 catheter (KT6ZV86) EMERGE OTW [place] 1 [id number] 960116 007509 162841 5 [id number] 1.5 x 15 Scientific balloon ([id number]) EMERGE OTW [place] 1 [id number] 792329 769308 929033 5 [id number] 2.0 x 8 Scientific balloon ([id number]) EXOSEAL 6Fr Cardinal 1 EX600 778697 891805 861549 10 (EX600) Health Signature Audit [place] Stage Time Signature Unsigned Intra-Procedure 11/16/2018 Art Betancourt RT(R) 12:18:10 PM RT(R) 11/16/2018 12:20:11 PM Intra-Procedure 11/16/2018 Art Betancourt 12:21:53 PM RT(R) Signatures Monitor : Art Betancourt RT Signature : Date : Time : [place] [address] [place] [address]
[~2018-11-16 09:31] MED LIST changes: +ALBUTEROL SULF8.5 GM INH
[2018-11-16 09:50] VITALS: BP 146/87; Ht 162.6 cm; Wt 75.5 kg
[2018-11-16 10:09] LABS: MCH 31.7 pg (26.0-34.0); MCHC 34.8 g/dL (31.0-37.0); MCV 91.3 fL (80.0-100.0); MEAN PLATELET VOLUME 9.4 fL (7.4-10.4); PLATELET COUNT 275 10x3/uL (130-400); RBC 5.04 10x6/uL (4.20-6.10); RDW 15.3 % (11.5-14.5); WBC 13.2 10x3/uL (4.8-10.8)
[2018-11-16 10:31] LABS: CALC OSMOLALITY 280 mosm/kg (275-300); CALCIUM 9.3 mg/dL (8.5-10.1); CARBON DIOXIDE 27.9 mmol/L (21.0-32.0); CHLORIDE - SERUM 105 mmol/L (98-107); GLUCOSE 95 mg/dL (74-106); SODIUM 141 mmol/L (136-145); UREA NITROGEN 12 mg/dL (7-18); eGFR NON AFRICAN AMERICAN 82 mL/min (90-120)
[2018-11-16 10:48] LABS: EOSINOPHILS 1 % (0-7); LYMPHOCYTES 19 % (15-50); MONOCYTES 7 % (2-11); NEUTROPHILS 72 % (40-80); PLATELET ESTIMATE NORMAL
--- NOTE | 2018-11-16 12:30 | NUR ---
PT RECEIVED VIA STRETCHER FROM [employer] FOR RECOVERY. PT DROWSY BUT AROUSABLE TO VERBAL STIMULI. 6FR EXOCELE TO L GROIN, DRESSING CDI NO BLEEDING OR HEMATOMA NOTED. HR NSR RATE 60, BP 126/87, O2 SAT 94 ON 2L/NC. IV PATENT INFUSING VIA ORDERS. CALL LIGHT IN REACH, FAMILY AT BEDSIDE.
--- NOTE | 2018-11-16 12:55 | NUR ---
6 FR EXOSEAL L/GROIN IS CDI NO BLEEDING OR HEMATOMA NOTED. VSS WITH CHEST PAIN DENIED. INSTRUCTED PATINET TO KEEP LLE STRAIGHT WITH HEAD FLAT ON PILLOW
--- NOTE | 2018-11-16 13:15 | NUR ---
PT SLEEPING COMFORTABLY, L GROIN SOFT NO BLEEDING OR HEMATOMA NOTED. PEDAL PULSES PALPALBE. CALL LIGHT IN REACH AND AT BEDSIDE.
--- NOTE | 2018-11-16 13:45 | NUR ---
PT RESTING COMFORTABLY, DENIES PAIN OR NEEDS. L GROIN SOFT, DRESSING CDI NO BLEEDING OR HEMATOMA NOTED.
--- NOTE | 2018-11-16 14:15 | NUR ---
L GROIN REMAINS SOFT, NO BLEEDING OR HEMATOMA NOTED. LEG PINK AND WARM, PEDAL PULSES PALPALBE. PT DENIES PAIN OR NEEDS AT THIS TIME. CALL LIGHT IN REACH, AT BEDSIDE
--- NOTE | 2018-11-16 14:44 | NUR ---
PT AWAKE, EATING BITES OF SANDWICH. DENIES NAUSEA OR PAIN. L GROIN DRESSING REMAINS CDI NO BLEEDING OR SWELLING NOTED. PEDAL PULSES PALPABLE. VSS.
--- NOTE | 2018-11-16 15:30 | NUR ---
L GROIN SOFT, NO BLEEDING OR HEMATOMA NOTED. PEDAL PULSES PALPABLE. HOB ELEVATED SLIGHTLY. PT DENIES PAIN OR NEEDS AT THIS TIME. AWAKE VISITING W FAMILY. CALL LIGHT IN REACH.
--- NOTE | 2018-11-16 16:01 | NUR ---
PT DOING WELL, VISITING W FAMILY. L GROIN REMAINS SOFT, NO BLEEDING OR SWELLING NOTED. L LEG PINK AND WARM, PEDAL PULSES PALPABLE. DENIES PAIN OR NEEDS.
--- NOTE | 2018-11-16 16:08 | NUR ---
IV REMOVED W CATH INTACT, MONITORS REMOVED. PT UP TO DRESS FOR DISCHARGE.
--- NOTE | 2018-11-16 16:14 | NUR ---
DISCHARGE INSTUCTIONS REVIEWED W PT AND , BOTH VERBALIZED UNDERSTANDING. PT DISCHARGE TO PRIVATE VEHICLE VIA WC WITH ALL BELONGINGS.
== END 2018-11-16 16:15 | disposition home or self-care (01) ==
LOC: D.CATH 09:31
PROVIDERS: ATTEND Internal Medicine Cardiovascular Disease
DX: I25.110 Atherosclerotic heart disease of native coronary artery with unstable angina pectoris (principal)

== ENCOUNTER 2019-06-09 08:45 | Outpatient (CLI) | payer MEDICARE ==
[~2019-06-09] VITALS: Ht 162.6 cm; Wt 77.7 kg
--- NOTE | ~2019-06-09 | HEMODYNAMI ---
PATIENT:SANDEEP GAGNON MEDICAL RECORD: [id number] : 62 LOCATION:[facility] ADMISSION DATE: 06/09/19 Generatedon:06/09/201911:04 Patient name: SANDEEP GAGNON Patient #: [id number] SSN: [id number] : 1960 Date of study: 06/09/2019 Page: Of Hemodynamic Procedure Report Patient Data Patient Demographics Procedure consent was obtained First Name: SANDEEP Gender: Male Last Name: KALIN : 1960 Middle Initial: THANIA Age: 58 year(s) Patient #: [id number] Race: SSN: [id number] Additional ID: [id number] Contact details [address]: [address] [place] [address] State: [place] City: [place] Zip code: [address] Past Medical History Allergies: No known allergies Admission Admission Data Admission Date: 06/09/2019 Admission Time: 8:45 Procedure Procedure Types Cath Procedure Diagnostic Procedure C C w/Coronaries w/Grafts FFR/IVUS FFR Initial Sedation Charges Moderate Sedation up to 15 minutes PCI Procedure AMI/SVG/DESKTOP SUPPORT SPECIALIST PTCA or Stent SVG-BMS/SOLO Initial Procedure Description Procedure Date Procedure Date: 06/09/2019 Procedure Start Time: 10:45 Procedure End Time: 11:00 Procedure Staff Name Function Moshe Malhotra MD Performing Physician Yvrose Godoy RT Monitor Darshana Dickerson RT Scrub Gina Turcios RN Nurse Mu Cabral RT Reel Winder Procedure Data Cath Procedure Fluoroscopy Diagnostic fluoroscopy Total fluoroscopy Time: 3.2 time: 3.2 min min Diagnostic fluoroscopy Total fluoroscopy dose: 452 dose: 452 mGy mGy Contrast Material Contrast Material Type Amount (ml) Isovue 300 94 Entry Location Entry Primary Successful Side Size Upsize Upsize Entry Closure Succes sful Closure Location (Fr) 1 (Fr) 2 (Fr) Remarks Device Remarks Femoral Right 5 Fr 6 Fr Exoseal artery Short Estimated blood loss: 5 ml Diagnostic catheters Device Type Used For End Catheter Placement DIAGNOSTIC Pigtail 5Fr LV Angiography catheter ([id number]) DIAGNOSTIC JL 5 5Fr Multi-vessel catheter ([id number]) Angiography DIAGNOSTIC 3DRC 5Fr SVG Angiography catheter ([id number]) DIAGNOSTIC AR2 MOD 5 Fr Multi-vessel catheter ([id number]) Angiography Procedure Complications No complications Procedure Medications Medication Administration Route Dosage 0.9% NaCl I.V. 100 ml/hr Oxygen etCO2 Nasal cannula 2 l/min Lidocaine 2% added to field 20 Heparin Flush Bag added to field 2 bags (1000units/500ml NS) Versed I.V. 2 mg Fentanyl I.V. 50 mcg Fentanyl I.V. 50 mcg Heparin Bolus I.V. 4000 units Hemodynamics Rest Heart Rate: 50 (bpm) Pressure Samples Time Site Value (mmHg) Purpose Heart Use Rate(bpm) 10:46 LV 112/15,50 Snapshot 58 Snapshots Pre Cath Intra NCS Post Cath Vital Signs Time Heart Resp SPO2 etCO2 NIBP (mmHg) Rhythm Pain Sedation Rate (ipm) (%) (mmHg) Status Level (bpm) 10:35:24 49 20 96 29.5 157/88(129) SB 0 (11) 10(A) , No pain 10:39:38 53 18 98 31.8 118/101(114) SB 0 (11) 10(A) , No pain 10:43:44 53 15 98 12.8 136/81(111) SB 0 (11) 10(A) , No pain 10:47:54 57 16 96 35.5 137/92(116) SB 0 (11) 9(A) , No pain 10:52:08 62 15 97 39.4 133/84(110) NSR 0 (11) 9(A) , No pain 10:56:18 64 16 98 39.4 131/89(110) NSR 0 (11) 10(A) , No pain 11:00:28 63 17 95 40.1 137/86(110) NSR 0 (11) 10(A) , No pain Medications Time Medication Route Dose Verified Delivered Reason Notes Effectiveness by by 10:34:20 0.9% NaCl I.V. 100 Moshe Shinyla used for ml/hr Roscoe Turcios lithograph operator 10:34:30 Oxygen etCO2 2 Moshe Gina used for Nasal l/min Roscoe Turcios procedure cannula RN 10:34:36 Lidocaine 2% added 20ml Moshe Mesa for local to vial Roscoe Malhotra MD anesthetic field 10:34:40 Heparin Flush added 2 Moshe Mesa used for Bag to bags Roscoe Malhotra MD procedure (1000units/500ml field NS) 10:37:06 Versed I.V. 2 mg Moshe Shinyla for sedation Roscoe Turcios RN 10:37:18 Fentanyl I.V. 50 Moshe Gina for sedation mcg Roscoe Turcios RN 10:44:25 Fentanyl I.V. 50 Moshe Gina for sedation mcg Roscoe Turcios RN 10:53:12 Heparin Bolus I.V. 4000 Moshe Gina for verif ied units Roscoe Turcios anticoagulation with Dr. OSCAR Malhotra Procedure Log Time Note 10:20:27 Mu Suit RT(R) sent for patient. Start room use. 10:28:26 Informed consent obtained and on chart 10:28:58 Diagnostic Cath Status : Elective 10::36 Time tracking: Regular hours (M-F 7:00 - 5:00) 10:29:39 Plan of Care:Hemodynamics will remain stable., Cardiac rhythm will remain stable., Comfort level will be maintained., Respiratory function will remain adequate., Patient/ family verbilizes understanding of procedure., Procedure tolerated without complication., Recovers from procedure without complications.. 10:29:46 Patient received from Pre/Post Procedure Room to CCL 2 Alert and oriented. Tansferred to table in Supine position. 10:29:47 Warm blankets applied, and ximena hugger turned on for patient comfort. 10:29:48 Correct patient and procedure confirmed by team. 10:29:48 ECG and BP/O2 sat monitors applied to patient. 10:34:10 Vital chart was started 10:34:20 0.9% NaCl 100 ml/hr I.V. was administered by Gina Turcios RN; used for procedure; Verbal order read back and verified. 10:34:30 Oxygen 2 l/min etCO2 Nasal cannula was administered by Gina Turcios RN; used for procedure; Verbal order read back and verified. 10:34:36 Lidocaine 2% 20ml vial added to field was administered by Moshe Malhotra MD; for local anesthetic; Verbal order read back and verified. 10:34:37 Baseline sample Acquired. 10:34:40 Heparin Flush Bag (1000units/500ml NS) 2 bags added to field was administered by Moshe Malhotra MD; used for procedure; Verbal order read back and verified. 10:34:42 Rhythm: sinus tachycardia 10:34:43 Full Disclosure recording started 10:34:47 H&P Date Dictated: 06/09/2019 Within 30 days and on chart., H&P Addendum completed by physician on day of procedure. (MUST COMPLETE FOR ALL OUTPATIENTS). 10:34:50 Pre-procedure instructions explained to patient. 10:34:51 Pre-op teaching completed and patient verbalized understanding. 10:35:10 Family in patients room. 10:35:12 Patient NPO since Midnight. 10:35:20 Is the patient allergic to Iodine/contrast media? No. 10:35:21 Was the patient premedicated? Yes 10:35:22 Is patient on blood thinner?Yes 10:35:25 ACC The patient was administered the following blood thiners within the last 24 hours: ACCPlavix 10:35:27 Patient diabetic? No. 10:35:30 Previous problem with sedation/anesthesia? No ? 10:35:36 Snore? Yes 10:35:37 Sleep apnea? No 10:35:38 Deviated septum? No 10:35:39 Opens mouth fully? Yes 10:35:39 Sticks out tongue? Yes 10:35:42 Airway obstruction? Yes copd 10:35:44 Dentures? No ? 10:35:48 Pre procedure: right dorsailis pedis pulse 1+ Palpable, but thready & weak; easily obliterated 10:35:51 Pre procedure: left dorsailis pedis pulse 1+ Palpable, but thready & weak; easily obliterated 10:35:54 Patient pain scale 0/10 ?. 10:36:00 IV patent on arrival in left forearm with 0.9% NaCl at [facility]. 10:36:11 Lab results completed and on chart. 10:36:17 Stress Test: no; N/A ? 10:36:20 Risk of Mortality: 0.1 10:36:25 Risk of blood transfusion: <0.1 10:36:29 Risk of NII: 1.1 10:36:34 Right groin area was prepped with chlora-prep and draped in sterile fashion 10:36:34 Alarms reviewed by RAdelaida N. 10:36:35 Sharps counted by scrub and verified by R.N. 10:36:37 Physician arrived 10:36:37 --------ALL STOP TIME OUT------ 10:36:38 Final Timeout: patient, procedure, and site verified with staff and physician. All members of the team are in agreement. 10:36:39 Right groin site verified by team. 10:36:46 Fire Safety Assessment: A--An alcohol-based skin anteseptic being used preoperatively., C--Open oxygen or nitrous oxide is being used., D--An ESU, laser, or fiber-optic light is being used. 10:36:48 Physical assessment completed. ASA score P 2 - A patient with mild systemic disease as per Moshe Malhotra MD. 10:36:56 2) 60-89 Mildly reduced kidney function, and other findings (as for stage 1) point to kidney disease. 10:37:06 Versed 2 mg I.V. was administered by Gina Turcios RN; for sedation; Verbal order read back and verified. 10:37:17 Maximum allowable contrast dose (3.7 X eGFR X 0.75)227 ml. 10:37:18 Fentanyl 50 mcg I.V. was administered by Gina Turcios RN; for sedation; Verbal order read back and verified. 10:37:23 Sedation plan: IV Moderate Sedation Medication:Versed, Fentanyl 10:37:30 Use device set Femoral Dx 10:37:31 ACIST Syringe (08787) opened to sterile field. 10:37:32 Bag Decanter () opened to sterile field. 10:37:32 Medline Cath Pack ([id number]) opened to sterile field. 10:37:33 ACIST Hand Control (80050) opened to sterile field. 10:37:33 ACIST Manifold (55553) opened to sterile field. 10:37:34 Tegaderm 4 x 4 (1626W) opened to sterile field. 10:37:36 SHEATH 5FR [place] (XZA646) opened to sterile field. 10:37:36 EMERALD Guide Wire (287-648) opened to sterile field. 10:38:02 Procedure Status Elective Heart Cath (OP). 10:38:07 ACC Patient presents with Stable Angina CCS Anginal Class 2--Slight limitation of ordinary activity. 10:44:25 Fentanyl 50 mcg I.V. was administered by Gina Turcios RN; for sedation; Verbal order read back and verified. 10:45:13 Procedure started. 10:45:17 Local anesthetic to right femoral artery with Lidocaine 2% by Moshe Malhotra MD.INITIAL ACCESS ONLY 10:45:26 A 5 Fr sheath was inserted into the Right Femoral artery 10:45:44 A DIAGNOSTIC Pigtail 5Fr catheter ([id number]) was advanced over the wire and used for LV Angiography. 10:46:29 LV hemodynamics recorded. 10:46:30 LV gram done using ANSARI 10:46:33 Injector settings: Ml/sec: 5, Volume: 15, 10:46:39 EF : 60 % 10:46:42 Catheter removed. 10:46:52 A DIAGNOSTIC JL 5 5Fr catheter (822753A) was advanced over the wire and used for Multi-vessel Angiography. 10:47:14 LCA angiography performed. 10:47:19 Injector settings: Ml/sec: 3, Volume: 6, 10:47:20 Catheter removed. 10:47:45 A DIAGNOSTIC 3DRC 5Fr catheter ([id number]) was advanced over the wire and used for SVG Angiography. 10:48:15 CUMMINGS to LAD angiography performed. 10:48:17 Catheter removed. 10:48:25 A DIAGNOSTIC AR2 MOD 5 Fr catheter (183739F) was advanced over the wire and used for Multi-vessel Angiography. 10:49:07 SVG to Circ angiography performed. 10:49:46 SVG to RCA angiography performed. 10:51:42 Catheter removed. 10:51:42 Proceeding to intervention. 10:52:08 GUIDE 6FR AR 2.0 catheter ([id number]) opened to sterile field. 10:52:08 Hinckley Verrata Plus pressure wire (79153F) opened to sterile field. 10:52:09 INFLATOR Merit BasixCompak (OZ3706) opened to sterile field. 10:52:10 SHEATH 6FR [place] (NNA975) opened to sterile field. 10:52:23 Sheath upsized to a 6 Fr Short. 10:52:28 6 Fr ar 2 guide catheter was inserted over the wire 10:52:41 FFR/IFR wire advanced. 10:52:43 Baseline FFR 1. 10:53:12 Heparin Bolus 4000 units I.V. was administered by Gina Turcios RN; for anticoagulation; verified with Dr. Malhotra Verbal order read back and verified. 10:53:16 pRCA lesion measured at 0.88 with IFR 10:53:36 Pre PCI Site: Vein Graft mRCA has 70% stenosis. 10:53:44 ACC Pre-intervention ALICJA Flow is 3. 10:55:12 Place stent Inflation Number: 1 A COBRA RX 3.5 X 18 Stent was prepped and advanced across the Aorta Right -> Mid RCA 70. The stent was deployed at 17 ROYAL for 0:10 (min:sec) 0. 10:55:59 Stent catheter was removed intact over wire. 10:56:46 mRCA lesion measured at 0.99 with IFR 10:56:54 Wire removed. 10:56:55 Guide catheter removed. 10:57:04 EXOSEAL 6Fr (EX600) opened to sterile field. 10:57:59 Sheath removed intact; hemostasis achieved with Exoseal to the Right Femoral artery. 10:58:01 Procedure ended.(Physican Out) 10:58:30 Fluoroscopy time 03.20 minutes. 10:58:33 Flurop Dose total: 452 10:58:33 Fluoroscopy dose: 452 mGy 10:58:40 Dose Area Product 77514 mGy/cm. 10:58:45 Contrast amount:Isovue 300 94ml. 10:58:47 Maximum allowable dose exceeded? No. 10:59:13 Sharps counted by scrub and verified by R.N. 10:59:14 Insertion/operative site no bleeding no hematoma. 10:59:16 Post-op/insertion site Right Femoral artery dressed using a 4 x 4 and Tegaderm. 10:59:18 Post Procedure Pulses reassessed and unchanged 10:59:20 Post procedure rhythm: unchanged. 10:59:23 Estimated blood loss: 5 ml 10:59:24 Post procedure instruction explained to patient.Patient verbalizes understanding. 10:59:25 Patient needs reinforcement of post procedure teaching. 10:59:44 Procedure type changed to Cath procedure, Diagnostic procedure, LHC, LHC w/Coronaries w/Grafts, FFR/IVUS, FFR Initial, Sedation Charges, Moderate Sedation up to 15 minutes, PCI procedure, AMI/SVG/DESKTOP SUPPORT SPECIALIST PTCA or Stent, SVG-BMS/SOLO Initial 10:59:45 Procedure and supply charges have been captured, reviewed, submitted and are correct. 10:59:49 Procedure Complication : No complications 10:59:51 Vital chart was stopped 10:59:54 [facility] Findings: MVD- PCI performed (see procedure note) 10:59:56 Operative report dictated upon procedure completion. 10:59:56 See physician's report for complete and final results. 10:59:59 Report given to Pre/Post Procedure Room. 11:00:01 Patient transfered to Pre/Post Procedure Room with Stretcher. 11:00:03 Procedure ended. 11:00:03 Full Disclosure recording stopped 11:00:25 ACC-PCI Only Patient was given prescriptions, or instructed by Moshe Malhotra MD to start/continue the following medications upon discharge: Plavix 11:00:26 End room use (Document Last) 11:01:06 ACT drawn and resulted at 302 seconds. (normal therapeutic range 180-240 seconds). 11:03:16 End room use (Document Last) 11:03:50 End room use (Document Last) Intervention Summary Intervention Notes Time ActionType Lesion and Equipment Action# Pressure Duration Attributes Used 10:55:12 Place stent Aorta Right COBRA RX 1 17 00:10 -> Mid RCA 3.5 X 18 Stent Device Usage Item Name Manufacture Quantity Catalog Hospital Part Current Minimal Lot# / Number Charge Number Stock Stock Serial# Code ACIST Syringe Acist 1 00868 290124 389182 035327 20 (76469) Medical Systems Inc Bag Decanter Microtek 1 2001S 981275 90883 281053 5 (2001S) Medical Inc. Medline Cath Medline 1 [id number] 986949 12680 457773 5 Pack ([id number]) ACIST Hand Acist 1 17063 042824 410754 193542 5 Control Medical (64527) Systems Inc ACIST Manifold Acist 1 48504 616286 162225 857197 5 (42194) Medical Systems Inc Tegaderm 4 x 4 3M 1 1626W 090105 453360 847023 5 (1626W) SHEATH 5FR Terumo 1 SVO864 779120 407000 164092 5 [place] (EJI351) EMERALD Guide Cardinal 1 502-455 693625 529461 362913 5 Wire (502-455) Health DIAGNOSTIC Cardinal 1 107853V 280878 730292 440299 5 Pigtail 5Fr Health catheter (210586Z) DIAGNOSTIC JL Cardinal 1 [id number] 619680 068272 441864 5 5 5Fr catheter Health (677655F) DIAGNOSTIC Cardinal 1 [id number] 448401 887217 907187 9 3DRC 5Fr Health catheter (066252Q) DIAGNOSTIC AR2 Cardinal 1 [id number] 925189 442593 193727 20 MOD 5 Fr Health catheter (081574B) GUIDE 6FR AR Medtronic 1 [id number] 389618 01205 833363 1 2.0 catheter ([id number]) Hinckley Hinckley 1 10250J 263272 103585963 813727 5 Verrata Plus pressure wire (07691X) INFLATOR Merit Merit 1 NQ2229 321055 390943 438463 15 BasixCloudVolumes Medical (UO2056) SHEATH 6FR Terumo 1 IMW596 523688 422993 025582 40 [place] (WNX563) COBRA RX 3.5 X Celonova 1 588-82-41178 395537 421646985 80970664 3 [id number] 18 stent Biosciences ([id number]) EXOSEAL 6Fr Cardinal 1 EX600 921030 783052 671706 10 (EX600) Health Signature Audit [place] Stage Time Signature Unsigned Intra-Procedure 06/09/2019 Yvrose Godoy 11:03:16 AM RT(R) Intra-Procedure 06/09/2019 Gina Turcios 11:03:50 AM RN Intra-Procedure 06/09/2019 Moshe Malhotra 11:04:09 AM Signatures Performing Physician : Signature : Moshe Malhotra MD Date : Time : Monitor : Yvrose Godoy RT Signature : Date : Time : Nurse : Gina Turcios RN Signature : Date : Time : [address] [place] [address]
[2019-06-09] MEDS ORDERED: CARAFATE1 G PO (09:03)
[2019-06-09 09:09] VITALS: BP 140/88; Ht 162.6 cm; Wt 77.7 kg
[2019-06-09 09:19] LABS: BASOPHILS 0.4 % (0-2); HEMATOCRIT 43.6 % (42.0-54.0); HEMOGLOBIN 14.8 g/dL (13.5-17.5); IMMATURE GRANULOCYTES 0.2 % (0-5); LYMPHOCYTES 26.7 % (15-50); MCH 32.2 pg (26.0-34.0); MCHC 33.9 g/dL (31.0-37.0); MEAN PLATELET VOLUME 9.2 fL (7.4-10.4); MONOCYTES 8.4 % (2-11); NEUTROPHILS 63.3 % (40-80); PLATELET COUNT 255 10x3/uL (130-400); RBC 4.59 10x6/uL (4.20-6.10); RDW 14.8 % (11.5-14.5); WBC 9.4 10x3/uL (4.8-10.8)
[2019-06-09 09:47] LABS: ALT (SGPT) 22 U/L (10-68); CALC OSMOLALITY 281 mosm/kg (275-300); CALCIUM 8.6 mg/dL (8.5-10.1); CARBON DIOXIDE 26.8 mmol/L (21.0-32.0); CHLORIDE - SERUM 105 mmol/L (98-107); CHOL - HDL RATIO 3.8 ratio (2.3-4.9); CHOLESTEROL, TOTAL 128 mg/dL (0-200); GLUCOSE 109 mg/dL (74-106); HDL CHOLESTEROL 34 mg/dL (32-96); LDL CHOLESTEROL 76 mg/dL (0-100); LDL-HDL RATIO 2.2 ratio (1.5-3.5); POTASSIUM - SERUM 3.9 mmol/L (3.5-5.1); SODIUM 141 mmol/L (136-145); TRIGLYCERIDE 92 mg/dL (30-200); UREA NITROGEN 12 mg/dL (7-18); eGFR NON AFRICAN AMERICAN 82 mL/min (90-120)
--- NOTE | 2019-06-09 11:10 | NUR ---
PT RECEIVED VIA STRETCHER FROM LABOR SERVICE REPRESENTATIVE FOR RECOVERY. PT SLEEPING BUT VERBALLY AROUSABLE. PT DENIES PAIN OR DISCOMFORT. IV PATENT INFUSING VIA ORDERS. PT PLACED ON CARDIAC MONITORS AND O2 AT 2L/NC. HR SB AT 55, BP 139/79, RR 15, SAT 95. R GROIN W 6FR EXOCELE, DRESSING CDI NO BLEEDING OR HEMATOMA NOTED. LEG PINK AND WARM, PEDAL PULSES PALPABLE. PT INSTRUCTED TO KEEP HEAD FLAT ON PILLOW AND R LEG STRAIGHT, HE VERBALIZED UNDERSTANDING. CALL LIGHT IN REACH, FAMILY AT BEDSIDE.
--- NOTE | 2019-06-09 11:30 | NUR ---
PT SLEEPING W/O COMPLAINTS. R GROIN SOFT, DRESSING CDI NO BLEEDING OR HEMATOMA NOTED. LEG PINK AND WARM, PEDAL PULSES PALPABLE. CALL LIGHT IN REACH, VSS.
--- NOTE | 2019-06-09 12:15 | NUR ---
PT SLEEPING. R GROIN SOFT, DRESSING CDI NO BLEEDING OR SWELLING NOTED. PEDAL PULSES PALPABLE. VSS. CALL LIGHT IN REACH. VSS
--- NOTE | 2019-06-09 12:45 | NUR ---
PT CONTINUES SLEEPING. R GROIN SOFT, DRESSING CDI NO BLEEDING OR SWELLING NOTED. LEG PINK AND WARM, PEDAL PULSES PALPABLE. VSS. CALL LIGHT IN REACH, FAMILY REMAINS AT BEDSIDE
--- NOTE | 2019-06-09 13:15 | NUR ---
PT RESTING, MORE AWAKE. SPRITE SIPS GIVEN. R GROIN SOFT, DRESSING CDI. PT DENIES PAIN OR NEEDS AT THIS TIME. FAMILY REMAINS AT BS, CALL LIGHT IN REACH
--- NOTE | 2019-06-09 13:45 | NUR ---
R GROIN SOFT, DRESSING REMAINS CDI. NO BLEEDING OR HEMATOMA NOTED. LEG PINK AND WARM, PEDAL PULSES PALPABLE. VSS. PT TOLERATING PO FLUIDS W/O NAUSEA. 350 CC CLEAR YELLOW URINE IN URINAL. CALL LIGHT IN REACH.
--- NOTE | 2019-06-09 14:01 | NUR ---
HOB ELEVATED SLIGHTLY, SANDWICH TRAY AND DRINK SERVED.
--- NOTE | 2019-06-09 14:30 | NUR ---
PT SITTING UP VISITING W FAMILY. R GROIN SOFT, DRESSING CDI NO BLEEDING OR HEMATOMA NOTED. PEDAL PULSES PALPABLE. PT DENIES NEEDS AT THIS TIME. VSS. CALL LIGHT IN REACH
--- NOTE | 2019-06-09 14:45 | NUR ---
IV REMOVED W CATH INTACT PER Mera DASH RN. MONITORS REMOVED AND PT UP TO DRESS FOR DISCHARGE
--- NOTE | 2019-06-09 14:55 | NUR ---
DISCHARGE INSTRUCTIONS REVIEWED W PT AND , BOTH VERBALIZED UNDERSTANDING. EXPLAINED IMPORTANCE OF TAKING PLAVIX DAILY DIRECTED, PT VERBALIZED UNDERSTANDING.
--- NOTE | 2019-06-09 15:01 | NUR ---
PT DISCHARGED VIA WC TO FAMILY IN PRIVATE VEHICLE. PT HAD ALL BELONGINGS AND DISCHARGE PAPERWORK IN HAND.
--- NOTE | 2019-06-14 09:28 | OP ---
PATIENT NAME: SANDEEP GAGNON MEDICAL RECORD: [id number] :62 LOCATION:D.CAT ADMISSION DATE: SURGEON: RUDDY DIGGS MD DATE OF OPERATION: 06/09/2019 PROCEDURES: 1. PTCA stent vein graft to RCA. 2. Left heart catheterization. 3. Selective coronary angiography. 4. Vein graft angiography. 5. CUMMINGS angiography. 6. Left ventriculogram. INDICATION: Angina and coronary artery disease. PROCEDURE IN DETAIL: After informed consent was obtained and after a detailed description of the risks, benefits as well as alternative therapies, the patient elected to proceed with angiogram and angioplasty. The right femoral area was prepped and draped in normal sterile fashion. Right femoral artery was cannulated via modified Seldinger technique with placement of 6-Armenian sheath. All catheters exchanged through this sheath. FINDINGS: The left ventriculogram was performed in standard 30-degree ANSARI view reveals preserved cardiac wall motion, ejection fraction 50%. SELECTIVE CORONARY ANGIOGRAPHY: 1. Left main is with no significant angiographic disease. 2. Left anterior descending is totally occluded. 3. Left circumflex is totally occluded. 4. Right coronary artery is totally occluded. 5. CUMMINGS to the LAD is widely patent. Distal LAD is widely patent. 6. Vein graft to the circumflex is widely patent, previously placed stents are widely patent. Distal circumflex is widely patent. 7. Vein graft to the right coronary artery is patent. The previously placed stents are widely patent; however, there is an area of 70% stenosis between the stents in the mid shaft of the vein graft. IFR was abnormal at 0.88. PTCA STENT OF THE VEIN GRAFT TO THE RCA: The stent used was a 3.5 x 18 mm Cobra. Result was 0% residual stenosis. IFR normalized to 0.99. OVERALL IMPRESSION: Successful percutaneous transluminal coronary angioplasty stent of the vein graft to the circumflex going from 70% initial stenosis with abnormal IFR to 0% residual stenosis and normalization of the IFR post procedure. TRANSINT:[id number] Voice Confirmation ID: [id number] DOCUMENT ID: [id number] OPERATIVE REPORT [id number] SANDEEP GAGNON RUDDY DIGGS MD at 0928 CC: [id number] DICTATION DATE: 06/09/19 1102 TELECOM ASSISTANT: 06/09/19 1121 DEP CLI 06/09/19 [facility] [address] [place] [address]
== END 2019-06-09 15:00 | disposition home or self-care (01) ==
LOC: D.CATH 08:45
PROVIDERS: ATTEND Internal Medicine Interventional Cardiology
DX: I25.110 Atherosclerotic heart disease of native coronary artery with unstable angina pectoris (principal); I10 Essential (primary) hypertension; J44.9 Chronic obstructive pulmonary disease, unspecified

== ENCOUNTER 2019-06-11 09:35 | Emergency (ER) | payer MEDICARE ==
[~2019-06-11] VITALS: Ht 162.6 cm; Wt 77.7 kg
[~2019-06-11 09:35] MED LIST changes: +CARAFATE1 G PO
[2019-06-11 09:37] VITALS: Ht 162.6 cm; Wt 77.7 kg
[2019-06-11] MEDS ORDERED: PROTONIX40 MG PO (09:43)
[2019-06-11] MEDS ORDERED: METOPROLOL TART25 MG PO (09:43)
[2019-06-11 10:05] LABS: HEMATOCRIT 39.6 % (42.0-54.0); HEMOGLOBIN 13.7 g/dL (13.5-17.5); LYMPHOCYTES 30.7 % (15-50); MCH 32.2 pg (26.0-34.0); MCHC 34.6 g/dL (31.0-37.0); MCV 93.2 fL (80.0-100.0); MEAN PLATELET VOLUME 9.1 fL (7.4-10.4); NEUTROPHILS 61.1 % (40-80); PLATELET COUNT 221 10x3/uL (130-400); RBC 4.25 10x6/uL (4.20-6.10); RDW 14.8 % (11.5-14.5)
[2019-06-11 10:19] LABS: APTT 25.1 SECONDS (22.8-39.4); CALC OSMOLALITY 276 mosm/kg (275-300); CALCIUM 8.6 mg/dL (8.5-10.1); CARBON DIOXIDE 26.7 mmol/L (21.0-32.0); CHLORIDE - SERUM 108 mmol/L (98-107); GLUCOSE 94 mg/dL (74-106); INR 1.03 (0.85-1.17); SODIUM 140 mmol/L (136-145); UREA NITROGEN 8 mg/dL (7-18); eGFR NON AFRICAN AMERICAN 82 mL/min (90-120)
[2019-06-11 10:31] LABS: ALBUMIN 3.5 g/dL (3.4-5.0); ALKALINE PHOSPHATASE 129 U/L (46-116); ALT (SGPT) 16 U/L (10-68); BILIRUBIN - TOTAL 0.39 mg/dL (0.2-1.3); CKMB 0.5 U/L (0.0-3.6); CREATINE KINASE 47 UL (21-232); MAGNESIUM - SERUM 1.9 mg/dL (1.8-2.4); PROTEIN - SERUM 6.7 g/dL (6.4-8.2); TROPONIN-I < 0.017 ng/mL (0.000-0.060)
--- NOTE | 2019-06-11 10:31 | NUR ---
PT DENIES SI AT THIS TIME. PT IS A LOW RISK PER ASSESSMENT. REVIEWED RESULTS WITH DR. AWAN AND ATTENDING. RESOURCES GIVEN AND PT VERBALIZED UNDERSTANDING. PT HAD DEPRESSION 10 YEARS AGO WHEN SPOUSE , BUT HAS BEEN GOOD SINCE.
[2019-06-11 11:49] VITALS: BP 152/89
== END 2019-06-11 11:49 | disposition home or self-care (01) ==
LOC: D.ER 09:35
PROVIDERS: Family Medicine
DX: R07.9 Chest pain, unspecified (principal); I25.10 Atherosclerotic heart disease of native coronary artery without angina pectoris; Z72.0 Tobacco use; I10 Essential (primary) hypertension; Z95.1 Presence of aortocoronary bypass graft; E78.5 Hyperlipidemia, unspecified; J44.9 Chronic obstructive pulmonary disease, unspecified; M54.9 Dorsalgia, unspecified

== ENCOUNTER → 2019-10-04 08:28 | Outpatient (CLI) | payer MEDICARE ==
[2019-06-11 09:37] VITALS: BMI 29.4
[~2019-10-04 08:28] MED LIST changes: +METOPROLOL TART25 MG PO
== END | disposition home or self-care (01) ==
LOC: D.US 08:28 → D.NM 09:30
PROVIDERS: ATTEND Internal Medicine Gastroenterology
DX: R10.9 Unspecified abdominal pain (principal); R11.0 Nausea

== ENCOUNTER → 2020-04-06 09:22 | Outpatient (CLI) | payer MEDICARE ==
[2019-06-11 09:37] VITALS: BMI 29.4
[2020-04-06 09:53] LABS: ALBUMIN 3.8 g/dL (3.4-5.0); BILIRUBIN - DIRECT 0.07 mg/dL (0.00-0.30); BILIRUBIN - INDIRECT 0.36 mg/dL (0.00-1.00); BILIRUBIN - TOTAL 0.43 mg/dL (0.2-1.3); PROTEIN - SERUM 7.1 g/dL (6.4-8.2)
== END | disposition home or self-care (01) ==
LOC: D.LAB 09:22 → D.US 10:30
PROVIDERS: ATTEND Internal Medicine Gastroenterology
DX: K76.0 Fatty (change of) liver, not elsewhere classified (principal)